=== PATIENT | female | born 1935 | race Caucasian/White ===

== ENCOUNTER → 2018-01-23 | Outpatient (CLI) | payer MEDICARE ==
[~2018-01-23] MED LIST: AMLO5 PO; ATEN50 PO; ATOR40TA PO; BISA10S PR; DOCU100 PO; FURO20 PO; HYDR-86 PO; ISOMON60ER PO; LEVFLO250 PO; LORA.5 PO; LOSA25 PO; OMEP20ER PO; RANO500T PO
== END ==
LOC: LAB SHORT 15:22 → LAB EV 15:22
DX: N39.0 Urinary tract infection, site not specified (principal)
CPT/HCPCS: 87077; 87086; 87186

== ENCOUNTER → 2018-05-01 | Outpatient (CLI) | payer MEDICARE ==
[2018-05-01 16:16] LABS: BASOPHILS ABSOLUTE AUTO 0.02 K/mm3 (0.00-0.23); BASOPHILS PERCENT AUTO 0 % (0-2); EOSINOPHILS ABSOLUTE AUTO 0.08 K/mm3 (0.00-0.68); EOSINOPHILS PERCENT AUTO 1 % (0-6); Hematocrit 33.9 % (33.0-51.0); Hemoglobin 10.9 g/dL (11.5-16.0); IMMATURE GRAN ABSOLUTE AUTO 0.03 K/mm3 (0.00-0.10); IMMATURE GRAN PERCENT AUTO 0 % (0-1); LYMPHOCYTES ABSOLUTE AUTO 0.96 K/mm3 (0.84-5.20); LYMPHOCYTES PERCENT AUTO 12 % (21-46); MONOCYTES ABSOLUTE AUTO 0.81 K/mm3 (0.16-1.47); MONOCYTES PERCENT AUTO 10 % (4-13); Mean Corpuscular HGB 27.8 pg (26.0-34.0); Mean Corpuscular HGB Conc 32.2 g/dL (31.5-36.5); Mean Corpuscular Volume 87 fL (80-100); Mean Platelet Volume 9.4 fL (9.1-12.4); NEUTROPHILS ABSOLUTE AUTO 6.45 K/mm3 (1.96-9.15); NEUTROPHILS PERCENT AUTO 77 % (41-73); Platelet Count 300 K/mm3 (150-400); RDW Coefficient Variation 17.2 % (11.7-14.2); RDW Standard Deviation 54.5 fL (35.1-46.3); Red Blood Cell Count 3.92 M/mm3 (3.80-5.20); White Blood Cell Count 8.35 K/mm3 (4.00-11.30)
== END ==
LOC: LAB SHORT 16:13 → LAB EV 16:13
PROVIDERS: Physician Assistant
DX: L03.119 Cellulitis of unspecified part of limb (principal)
CPT/HCPCS: 85025

== ENCOUNTER 2019-04-30 17:21 | Inpatient (IN) | payer MEDICARE ==
[~2019-04-30] VITALS: Ht 170.2 cm; Wt 64.9 kg
[2019-04-30 18:20] LABS: BASOPHILS ABSOLUTE AUTO 0.03 K/mm3 (0.00-0.23); BASOPHILS PERCENT AUTO 0 % (0-2); EOSINOPHILS ABSOLUTE AUTO 0.21 K/mm3 (0.00-0.68); EOSINOPHILS PERCENT AUTO 3 % (0-6); Hematocrit 24.3 % (33.0-51.0); Hemoglobin 7.2 g/dL (11.5-16.0); IMMATURE GRAN ABSOLUTE AUTO 0.02 K/mm3 (0.00-0.10); IMMATURE GRAN PERCENT AUTO 0 % (0-1); LYMPHOCYTES ABSOLUTE AUTO 0.79 K/mm3 (0.84-5.20); LYMPHOCYTES PERCENT AUTO 12 % (21-46); MONOCYTES ABSOLUTE AUTO 0.48 K/mm3 (0.16-1.47); MONOCYTES PERCENT AUTO 7 % (4-13); Mean Corpuscular HGB 23.5 pg (26.0-34.0); Mean Corpuscular HGB Conc 29.6 g/dL (31.5-36.5); Mean Corpuscular Volume 79 fL (80-100); Mean Platelet Volume 9.9 fL (9.1-12.4); NEUTROPHILS ABSOLUTE AUTO 5.24 K/mm3 (1.96-9.15); NEUTROPHILS PERCENT AUTO 77 % (41-73); Platelet Count 305 K/mm3 (150-400); RDW Coefficient Variation 18.3 % (11.7-14.2); RDW Standard Deviation 52.2 fL (35.1-46.3); Red Blood Cell Count 3.07 M/mm3 (3.80-5.20); White Blood Cell Count 6.77 K/mm3 (4.00-11.30)
[2019-04-30 18:37] LABS: Alanine Aminotransfer (ALT/SGP 13 U/L (12-78); Albumin/Globulin Ratio 0.9 (0.8-1.8); Alk Phos 125 U/L (50-136); Anion Gap 3 mmol/L (6-16); Aspartate Aminotrans (AST/SGOT 12 U/L (12-37); Bilirubin, Total 0.4 mg/dL (0.1-1.0); Blood Urea Nitrogen 27 mg/dL (8-24); Bun/Creatinine Ratio 33.6 (12.0-20.0); CO2, Blood 28 mmol/L (21-32); Calcium, Blood 8.7 mg/dL (8.5-10.1); Chloride, Blood 106 mmol/L (98-108); Globulin, Blood 3.3 g/dL (2.2-4.0); Glomerular Filtration Rate >60 (60-); Glucose, Blood 102 mg/dL (70-99); Potassium, Blood 4.3 mmol/L (3.5-5.5); Sodium, Blood 137 mmol/L (136-145); Total Protein, Blood 6.3 g/dL (6.4-8.2)
[2019-04-30] MEDS ORDERED: DIAZ5 PO (19:46)
[2019-04-30] MEDS ORDERED: CLOP75 PO (19:46)
[2019-04-30] MEDS ORDERED: OLME20 PO ×2 (19:46)
[2019-04-30 20:30] LABS: Source, Urine Clean Catch
[2019-04-30 20:34] LABS: Bilirubin, Urine Neg (Neg); Blood, Urine Neg (Neg); Glucose Qualitative, Urine Neg (Neg); Ketones, Urine Neg (Neg); Leukocyte Esterase, Urine 1+ (Neg); Nitrite, Urine Neg (Neg); Protein, Urine Neg (Neg); Specific Gravity, Urine 1.005 (1.003-1.022); Urobilinogen, Urine NORM (Normal)
[2019-04-30 20:41] LABS: Appearance, Urine Clear (Clear); Color, Urine Yellow (P-Yellow)
[2019-04-30 20:43] LABS: Bacteria Few /hpf; Red Blood Cells, Urine Not Seen /hpf (0-2); Squamous Epithelial Cells Rare /hpf (Few); White Blood Cells, Urine 0-2 /hpf (0-5)
--- NOTE | 2019-04-30 22:20 | NUR ---
PATIENT ARRIVED TO THE FLOOR VIA GURNEY. TRANSFERRED SELF TO BED. BLOOD TRANSFUSION INFUSING WITH NO PROBLEMS INTO 20G LEFT FA. PATIENT INDEPENDENT IN THE ROOM, AOX3. STATES OCCATIONAL ABDOMINAL PAIN THAT COMES AND GOES. CONSTIPATION FOR THE LAST FEW DAYS WITH ONLY SMALL BM DAILY, BUT HAS NOT HAD A GOOD BM FOR SEVERAL DAYS SHE STATES. LUNG SOUNDS ARE CLEAR THROUGHOUT. NO COUGH OR CONGESTION NOTED. ABDOMIN SLIGHT DISTENTION, TENDER TO TOUCH, HYPOACTIVE BT. SKIN WITH MULTIPLE BRUISES ON EXTREMITIES, PALE AND WARM TO THE TOUCH. HR REGULAR. TELE ORDERED. PATIENT SETTLED INTO THE ROOM, CALL LIGHT GIVEN. ADMISSION HISTORY AND ASSESSMENT COMPLETED. WILL CONTINUE TO MONITOR.
[2019-05-01 01:52] LABS: Hematocrit 29.6 % (33.0-51.0); Hemoglobin 9.1 g/dL (11.5-16.0); Mean Corpuscular HGB 24.4 pg (26.0-34.0); Mean Corpuscular HGB Conc 30.4 g/dL (31.5-36.5); Mean Corpuscular Volume 80 fL (80-100); Mean Platelet Volume 9.7 fL (9.1-12.4); Platelet Count 319 K/mm3 (150-400); RDW Coefficient Variation 17.5 % (11.7-14.2); RDW Standard Deviation 50.8 fL (35.1-46.3); Red Blood Cell Count 3.69 M/mm3 (3.80-5.20); White Blood Cell Count 9.53 K/mm3 (4.00-11.30)
[2019-05-01 02:10] LABS: Alanine Aminotransfer (ALT/SGP 15 U/L (12-78); Albumin, Blood 3.3 g/dL (3.4-5.0); Alk Phos 137 U/L (50-136); Anion Gap 7 mmol/L (6-16); Aspartate Aminotrans (AST/SGOT 8 U/L (12-37); Bilirubin, Total 1.7 mg/dL (0.1-1.0); Blood Urea Nitrogen 22 mg/dL (8-24); Bun/Creatinine Ratio 24.9 (12.0-20.0); CO2, Blood 30 mmol/L (21-32); Calcium, Blood 8.8 mg/dL (8.5-10.1); Chloride, Blood 106 mmol/L (98-108); Creatinine, Blood 0.88 mg/dL (0.40-1.00); Globulin, Blood 3.3 g/dL (2.2-4.0); Glomerular Filtration Rate >60 (60-); Glucose, Blood 108 mg/dL (70-99); Potassium, Blood 3.6 mmol/L (3.5-5.5); Sodium, Blood 143 mmol/L (136-145); Total Protein, Blood 6.6 g/dL (6.4-8.2)
--- NOTE | 2019-05-01 05:58 | NUR ---
SHIFT SUMMARY: 83 Y/O FEMALE ADMITTED FOR [facility], GOT TO THE FLOOR LAST NIGHT WITH BLOOD INFUSING FOR AN H/H OF 7.2/24.3. REPORTS SHE HAD BEEN HAVING BLACK TARRY STOOLS OFF AND ON FOR ABOUT 2 YEARS, BUT RECENTLY STARTED TO HAVE ABDOMINAL PAIN. WHICH SHE HAS NOT HAD A GOOD BM FOR SEVERAL DAYS, AND WILL NEED BOWEL CARE. VITALS SHOWN HTN 213/92 IN ER, 170'S/80'S ON THE FLOOR UNTIL LASIX WAS GIVEN AND BLOOD TRANSFUSION COMPLETED. NOW BP IS DOWN TO 149/59 LAST CHECKED. H/H THIS AM IS 9.1/29.6. GI CONSULT CALLED INTO DR. GARCIA FOR TODAY. OUTPUT AFTER LASIX WAS A TOTAL 3600. SOB HAS IMPROVED. SHE IS TIRED FROM BEING UP AND DOWN ALL NIGHT. IV PATENT AND SL. CALL LIGHT REMAINED IN REACH, PATIENT UP INDEPENDENT TO BSC ALL NIGHT. WILL REPORT TO DAY SHIFT RN.
[2019-05-01 13:19] LABS: Hematocrit 33.4 % (33.0-51.0); Hemoglobin 10.6 g/dL (11.5-16.0)
--- NOTE | 2019-05-01 16:18 | NUR ---
SHIFT SUMMARY PT'S DIET ADVANCED FROM CLEAR LIQUID TO CARDIAC DIET. ONE UNIT OF BLOOD GIVEN THIS SHIFT. PT TOLERATED THIS WELL. LASIX GIVEN ORDERED. I HAVE NOTICED THE PT RUNS HYPERTENSIVE (EXAMPLE: 199/76), AND SHE HAS SINCE ADMIT. I'VE ATTEMPTED TO CONTACT THE DOCTOR TO ASK ABOUT THIS, BUT I GET ONLY THE PAGING SYSTEM. IT IS NOT AN URGENT QUESTION THE PT HAS RAN HYPERTENSIVE SINCE ADMIT, BUT I AM CURIOUS ABOUT THIS. ECHO PERFORMED TODAY.
--- NOTE | 2019-05-01 17:27 | NUR ---
DR. GARCIA ROUNDED/I CALLED NIGHT HOSPITALIST DR. GARCIA DISCOVERED THAT THE PT HAD A PROLAPSED RECTUM DURING HIS EXAM. PT REFUSING ALL INVASIVE PROCEDURES AT THIS TIME. HOWEVER, I FEEL MUCH OF THIS MAY BE DUE TO FINANCIAL CONCERNS. I WILL HAVE BILLING DEPARTMENT COME AND ASWAGE HER AND HER 'S FEARS TOMORROW, IF POSSIBLE. I CALLED THE NIGHT HOSPITALIST REGARDING THE PT'S CONSISTENTLY HIGH BLOOD PRESSURES. THE NIGHT HOSPITALIST ASSURES ME THAT SHE WILL LOOK INTO THIS.
--- NOTE | 2019-05-01 19:20 | NUR ---
ASSUMED CARE OF THE PATIENT. PATIENT RESTING IN ROOM WORRIED ABOUT HER FINANCES DISCUSSED [facility] FINANCIAL ASSISTANCE PROGRAM. SHE SAID SHE WAS TOLD ABOUT IT AND WILL WORK WITH DAY SHIFT TOMORROW. SHE DOES NOT WANT TO THINK ABOUT IT MORE THEN SHE ALREADY IT. DENIES ANY NEEDS AT THIS TIME. CALL LIGHT IN REACH, WILL CONTINUE TO MONTIOR.
[2019-05-02 05:00] LABS: BASOPHILS ABSOLUTE AUTO 0.05 K/mm3 (0.00-0.23); BASOPHILS PERCENT AUTO 1 % (0-2); EOSINOPHILS ABSOLUTE AUTO 0.25 K/mm3 (0.00-0.68); EOSINOPHILS PERCENT AUTO 3 % (0-6); Hematocrit 34.4 % (33.0-51.0); Hemoglobin 10.7 g/dL (11.5-16.0); IMMATURE GRAN ABSOLUTE AUTO 0.02 K/mm3 (0.00-0.10); IMMATURE GRAN PERCENT AUTO 0 % (0-1); LYMPHOCYTES ABSOLUTE AUTO 0.69 K/mm3 (0.84-5.20); LYMPHOCYTES PERCENT AUTO 8 % (21-46); MONOCYTES PERCENT AUTO 8 % (4-13); Mean Corpuscular HGB 24.4 pg (26.0-34.0); Mean Corpuscular HGB Conc 31.1 g/dL (31.5-36.5); Mean Corpuscular Volume 79 fL (80-100); Mean Platelet Volume 10.3 fL (9.1-12.4); NEUTROPHILS ABSOLUTE AUTO 6.95 K/mm3 (1.96-9.15); NEUTROPHILS PERCENT AUTO 80 % (41-73); Platelet Count 334 K/mm3 (150-400); RDW Coefficient Variation 17.5 % (11.7-14.2); RDW Standard Deviation 49.2 fL (35.1-46.3); Red Blood Cell Count 4.38 M/mm3 (3.80-5.20); White Blood Cell Count 8.66 K/mm3 (4.00-11.30)
[2019-05-02 05:52] LABS: Albumin, Blood 3.1 g/dL (3.4-5.0); Anion Gap 6 mmol/L (6-16); Blood Urea Nitrogen 20 mg/dL (8-24); Bun/Creatinine Ratio 20.1 (12.0-20.0); CO2, Blood 30 mmol/L (21-32); Calcium, Blood 8.9 mg/dL (8.5-10.1); Chloride, Blood 106 mmol/L (98-108); Glomerular Filtration Rate 56 (60-); Glucose, Blood 98 mg/dL (70-99); Phosphorus, Blood 3.8 mg/dL (2.5-4.9); Potassium, Blood 3.7 mmol/L (3.5-5.5); Sodium, Blood 142 mmol/L (136-145)
--- NOTE | 2019-05-02 05:59 | NUR ---
SHIFT SUMMARY: 83 Y/O FEMALE, SLEPT OFF AND ON ALL NIGHT. VS SHOWED HTN IN THE 190-210'S HYDRALAZINE WAS GIVEN THIS AM. RECHECK SHOWED STILL IN THE WITH SOME DIZZINESS SHE REPORTED. WILL RECHECK AGAIN IN AN HOUR TO SEE IF THE BP HAS CAME DOWN FURTHER. SHE HAS LASIX ORDERED FOR THIS AM WELL. SHE DID RECEIVE THE SUPPOSITORY FOR HER HEMMORRIDS THAT DR. GARCIA ORDERED. SHE DID EXPRESSED INCREASE STRESS OVER HER FINANCES TONIGHT. ENCOURAGED HER TO NOT STRESS CERTIFIED PHARMACY TECH PLANS ON TALKING TO HER ABOUT FINANCIAL ASSISTANCE PROGRAM. THIS MIGHT BE WHAT IS CAUSING HER BP TO GO UP, H/H THIS AM WAS 10.6/33.4. WILL REPORT TO DAY SHIFT OF THE CHANGES THAT OCCURRED.
[2019-05-02] MEDS ORDERED: HYDACE25S PR (08:27)
[2019-05-02] MEDS ORDERED: POTCHL20ER PO (08:27)
[2019-05-02] MEDS ORDERED: FAMO20 PO (08:28)
[2019-05-02] MEDS ORDERED: SPIR25 PO (08:28)
--- NOTE | 2019-05-02 10:19 | NUR ---
DISCHARGE NOTE MEDICATIONS FAXED TO PREFERED PHARMACY. TELEMETRY DISCONTINUED. PT PROVIDED WITH HARDCOPY AND VERBAL INSTRUCTIONS FOR DISCHARGE RE: MEDICATIONS, DIAGNOSES, FOLLOW UP APPOINTMENTS. PT HAD NO FURTHER QUESTIONS. PT DRESSED IN PERSONAL CLOTHES. PERSONAL BELONGINGS GATHERED AND GIVEN TO THE PT. FAMILY NOTIFIED OF DISCHARGE. ESCORT TOOK THE PT OUT VIA WHEELCHAIR TO PRIVATE VEHICLE.
== END 2019-05-02 10:05 | disposition home or self-care (01) | DRG 291 ==
LOC: ER 17:21 → MEDS 17:22 → ENPENDDIS 05-02 08:07 → MEDS 05-02 10:05
PROVIDERS: Family Medicine; Physician Assistant; ADMIT Internal Medicine
PROC: 30233N1 Transfusion of Nonautologous Red Blood Cells into Peripheral Vein, Percutaneous Approach (ICD-10-PCS; principal; 2019-04-30)
DX: I11.0 Hypertensive heart disease with heart failure (principal); K29.71 Gastritis, unspecified, with bleeding; I50.31 Acute diastolic (congestive) heart failure; D62 Acute posthemorrhagic anemia; K64.8 Other hemorrhoids; I25.10 Atherosclerotic heart disease of native coronary artery without angina pectoris; I25.2 Old myocardial infarction; F41.9 Anxiety disorder, unspecified; Z79.02 Long term (current) use of antithrombotics/antiplatelets; Z86.73 Personal history of transient ischemic attack (TIA), and cerebral infarction without residual deficits
CPT/HCPCS: 36415; 36430; 71045; 74176; 80053; 80061; 80069; 81001; 82272; 82728; 83540; 83550; 83880; 84484; 85014; 85018; 85025; 85027; 86850; 86900; 86901; 86923; 87086; 93005; 93010; 93306; 96374; 96375; 96376; 99284-25; C9113; G0378; J0360; J1940; J7030; P9016

== ENCOUNTER → 2020-11-03 | Outpatient (CLI) | payer MEDICARE ==
[~2020-11-03] MED LIST changes: +ALEN70 PO; +ALLEGRA ALLERG180 MG PO; +ASPI81CH PO; +CLOP75 PO; +DIAZ5 PO; +FAMO20 PO; +FERROUS GLUCON324 M2 PO; +HYDACE25S PR; -ISOMON60ER PO; +ISOSORBIDE MONO60 MG PO; +OLME20 PO; +POTCHL20ER PO; +SPIR25 PO; +TORSE20 PO
== END | disposition home or self-care (01) ==
LOC: LAB EV 14:32 → LAB SHORT 14:32
DX: N39.0 Urinary tract infection, site not specified (principal)
CPT/HCPCS: 87077; 87086; 87186

== ENCOUNTER 2020-12-24 02:00 | Day surgery (SDC) | payer MEDICARE ==
[~2020-12-24 02:00] MED LIST changes: -ALEN70 PO; -ALLEGRA ALLERG180 MG PO; -ASPI81CH PO; -FERROUS GLUCON324 M2 PO; -TORSE20 PO
== END 2020-12-24 23:07 | disposition home or self-care (01) ==
LOC: WOUND 02:00
DX: L97.822 Non-pressure chronic ulcer of other part of left lower leg with fat layer exposed (principal); R60.0 Localized edema; I87.2 Venous insufficiency (chronic) (peripheral); I13.2 Hypertensive heart and chronic kidney disease with heart failure and with stage 5 chronic kidney disease, or end stage renal disease; I50.32 Chronic diastolic (congestive) heart failure; N18.6 End stage renal disease; I73.9 Peripheral vascular disease, unspecified; Z88.5 Allergy status to narcotic agent; Z88.1 Allergy status to other antibiotic agents; Z87.891 Personal history of nicotine dependence; Z95.5 Presence of coronary angioplasty implant and graft
CPT/HCPCS: A9270; G0463

== ENCOUNTER 2020-12-31 00:26 | Day surgery (SDC) | payer MEDICARE | END 2020-12-31 22:42 | disposition home or self-care (01) | LOC: WOUND 00:26 | DX: L97.822 Non-pressure chronic ulcer of other part of left lower leg with fat layer exposed (principal); I87.2 Venous insufficiency (chronic) (peripheral); I73.9 Peripheral vascular disease, unspecified; I25.10 Atherosclerotic heart disease of native coronary artery without angina pectoris; I50.30 Unspecified diastolic (congestive) heart failure; N18.30 Chronic kidney disease, stage 3 unspecified; M81.0 Age-related osteoporosis without current pathological fracture; Z95.5 Presence of coronary angioplasty implant and graft; Z88.1 Allergy status to other antibiotic agents; Z88.5 Allergy status to narcotic agent | CPT/HCPCS: A9270 ==

== ENCOUNTER 2021-01-04 00:20 | Day surgery (SDC) | payer MEDICARE | END 2021-01-04 22:50 | disposition home or self-care (01) | LOC: WOUND 00:20 | DX: L97.822 Non-pressure chronic ulcer of other part of left lower leg with fat layer exposed (principal); R60.0 Localized edema; I87.2 Venous insufficiency (chronic) (peripheral); I73.9 Peripheral vascular disease, unspecified | CPT/HCPCS: A9270 ==

== ENCOUNTER 2021-01-07 00:39 | Day surgery (SDC) | payer MEDICARE | END 2021-01-07 22:56 | disposition home or self-care (01) | LOC: WOUND 00:39 | DX: L97.822 Non-pressure chronic ulcer of other part of left lower leg with fat layer exposed (principal); R60.0 Localized edema; I87.2 Venous insufficiency (chronic) (peripheral); I73.9 Peripheral vascular disease, unspecified; I25.10 Atherosclerotic heart disease of native coronary artery without angina pectoris; I50.30 Unspecified diastolic (congestive) heart failure; N18.30 Chronic kidney disease, stage 3 unspecified | CPT/HCPCS: A9270 ==

== ENCOUNTER 2021-01-13 03:24 | Day surgery (SDC) | payer MEDICARE | END 2021-01-13 23:19 | disposition home or self-care (01) | LOC: WOUND 03:24 | DX: L97.822 Non-pressure chronic ulcer of other part of left lower leg with fat layer exposed (principal); R60.0 Localized edema; I87.2 Venous insufficiency (chronic) (peripheral); I73.9 Peripheral vascular disease, unspecified; I25.10 Atherosclerotic heart disease of native coronary artery without angina pectoris; Z95.5 Presence of coronary angioplasty implant and graft; N18.30 Chronic kidney disease, stage 3 unspecified; I50.30 Unspecified diastolic (congestive) heart failure; Z88.8 Allergy status to other drugs, medicaments and biological substances; Z88.1 Allergy status to other antibiotic agents | CPT/HCPCS: A9270 ==

== ENCOUNTER 2021-01-20 04:38 | Day surgery (SDC) | payer MEDICARE | END 2021-01-20 22:55 | disposition home or self-care (01) | LOC: WOUND 04:38 | DX: L97.822 Non-pressure chronic ulcer of other part of left lower leg with fat layer exposed (principal); I87.2 Venous insufficiency (chronic) (peripheral); I73.9 Peripheral vascular disease, unspecified; I25.10 Atherosclerotic heart disease of native coronary artery without angina pectoris; Z95.5 Presence of coronary angioplasty implant and graft; I50.9 Heart failure, unspecified; N18.30 Chronic kidney disease, stage 3 unspecified; M81.0 Age-related osteoporosis without current pathological fracture | CPT/HCPCS: A9270 ==

== ENCOUNTER 2021-01-27 02:24 | Day surgery (SDC) | payer MEDICARE | END 2021-01-27 23:49 | disposition home or self-care (01) | LOC: WOUND 02:24 | DX: L97.822 Non-pressure chronic ulcer of other part of left lower leg with fat layer exposed (principal); R60.0 Localized edema; I87.2 Venous insufficiency (chronic) (peripheral); I73.9 Peripheral vascular disease, unspecified; I25.10 Atherosclerotic heart disease of native coronary artery without angina pectoris; I50.32 Chronic diastolic (congestive) heart failure; N18.30 Chronic kidney disease, stage 3 unspecified | CPT/HCPCS: A9270 ==

== ENCOUNTER 2021-02-04 04:11 | Day surgery (SDC) | payer MEDICARE | END 2021-02-04 23:14 | disposition home or self-care (01) | LOC: WOUND 04:11 | DX: L97.822 Non-pressure chronic ulcer of other part of left lower leg with fat layer exposed (principal); I87.2 Venous insufficiency (chronic) (peripheral); I73.9 Peripheral vascular disease, unspecified; R60.0 Localized edema; I25.10 Atherosclerotic heart disease of native coronary artery without angina pectoris; I50.30 Unspecified diastolic (congestive) heart failure; N18.30 Chronic kidney disease, stage 3 unspecified; Z95.5 Presence of coronary angioplasty implant and graft | CPT/HCPCS: A9270 ==

== ENCOUNTER 2021-02-10 04:47 | Day surgery (SDC) | payer MEDICARE | END 2021-02-10 23:01 | disposition home or self-care (01) | LOC: WOUND 04:47 | DX: L97.822 Non-pressure chronic ulcer of other part of left lower leg with fat layer exposed (principal); R60.0 Localized edema; I87.2 Venous insufficiency (chronic) (peripheral); I73.9 Peripheral vascular disease, unspecified | CPT/HCPCS: A9270 ==

== ENCOUNTER 2021-02-16 20:19 | Inpatient (IN) | payer MEDICARE ==
[~2021-02-16] VITALS: Ht 167.6 cm; Wt 62.8 kg
[2021-02-16 21:04] LABS: BASOPHILS ABSOLUTE AUTO 0.06 K/mm3 (0.00-0.23); BASOPHILS PERCENT AUTO 1 % (0-2); EOSINOPHILS ABSOLUTE AUTO 0.36 K/mm3 (0.00-0.68); EOSINOPHILS PERCENT AUTO 4 % (0-6); Hematocrit 36.3 % (33.0-51.0); Hemoglobin 11.2 g/dL (11.5-16.0); IMMATURE GRAN ABSOLUTE AUTO 0.03 K/mm3 (0.00-0.10); IMMATURE GRAN PERCENT AUTO 0 % (0-1); LYMPHOCYTES ABSOLUTE AUTO 1.11 K/mm3 (0.84-5.20); LYMPHOCYTES PERCENT AUTO 13 % (21-46); MONOCYTES ABSOLUTE AUTO 0.71 K/mm3 (0.16-1.47); MONOCYTES PERCENT AUTO 8 % (4-13); Mean Corpuscular HGB 26.7 pg (26.0-34.0); Mean Corpuscular HGB Conc 30.9 g/dL (31.5-36.5); Mean Corpuscular Volume 87 fL (80-100); Mean Platelet Volume 10.7 fL (9.1-12.4); NEUTROPHILS PERCENT AUTO 73 % (41-73); Platelet Count 254 K/mm3 (150-400); RDW Coefficient Variation 17.2 % (11.7-14.2); RDW Standard Deviation 54.3 fL (35.1-46.3); Red Blood Cell Count 4.19 M/mm3 (3.80-5.20); White Blood Cell Count 8.47 K/mm3 (4.00-11.30)
[2021-02-16 21:21] LABS: Albumin/Globulin Ratio 0.8 (0.8-1.8); Bilirubin, Total 0.3 mg/dL (0.1-1.0); Bun/Creatinine Ratio 24.4 (12.0-20.0); Calcium, Blood 8.9 mg/dL (8.5-10.1); Creatinine, Blood 0.98 mg/dL (0.40-1.00); Globulin, Blood 3.8 g/dL (2.2-4.0); Potassium, Blood 4.3 mmol/L (3.5-5.5); Total Protein, Blood 6.8 g/dL (6.4-8.2)
[2021-02-16 21:49] LABS: Troponin I 0.023 ng/mL (0.000-0.040)
[2021-02-16 23:29] LABS: CHOL/HDL RATIO 1.7; Cholesterol 108 mg/dL (50-200); HDL Cholesterol 64 mg/dL (>39); International Normalized Ratio 1.01; LDL/HDL RATIO 0.5; Low Density Lipoprotein Chol 33 mg/dL (0-110); Prothrombin Time Results 10.9 Sec (9.7-11.5); Triglycerides 54 mg/dL (30-160); Very Low Density Lipoprot Chol 10 mg/dL (6-32)
--- NOTE | 2021-02-17 06:44 | NUR ---
SUMMARY PT HAS BEEN A&O X3, SHE WAS ANABLE TO RECALL HER MEDICAL HX, MEDICATIONS OR ALLERGIES. PT IS COOPERATIVE BUT VERY ANXIOUS, HYPERTENSIVE & TALKATIVE. PT STATES SHE STILL HAS A SMALL AMOUNT OF TINGLENG TO HER RIGHT ARM BUT IT HAS IMPROVED SINCE ADMISSION. SHE IS ON ROOM AIR & DENIES CP/PRESSURE. PT IS A STAND BY ASSIST TO THE BATHROOM, TOLERATING PO INTAKE. CALL LIGHT IN REACH, BED ALARM IS ON FOR SAFETY.
--- NOTE | 2021-02-17 13:06 | NUR ---
PT FELT THAT THE WEAKNESS IN HER ARM HAS INCRESED, HER BP IS STILL ELEVATED, PERMISSIVE HTN TREAT PER EMAR WHEN SBP IS GREATER THAN 220. 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 AWAITING MRI RESULTS, IT WAS COMPLETED TODAY. PT IS ANXIOUS ABOUT HER DIAGNOSIS AND VERY WORRIED. PT IS HAVING ACTIVE HEMMORRIOD BLEEDING WHICH IS MAKING THE USE OF THINNERS DIFFICULT.
--- NOTE | 2021-02-17 17:33 | NUR ---
Echocardiogram performed.
--- NOTE | 2021-02-17 18:37 | NUR ---
SHIFT SUMMARY PT HAS BEEN COOPERATIVE WITH CARE TODAY. PT HAS BEEN HTN, PERMISSIVE UP TO SBP 180, PRN MEDICATIONS ON EMAR FOR HIGHER SBP. PT HAD AN MRI COMPLETED TODAY WHICH CONFIRMED STROKE, RIGHT SIDED WEAKNESS MOSTLY IN THE RIGHT HAND. 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 PT'S SKIN IS VERY FRAGILE. WOUND CLINIC ORDERS WERE OBTAINED AND PUT IN THE COMPUTER AND CHART, PICTURES WERE TAKEN AND THE WOUND WAS REDRESSED. THE DRESSING IS TO BE COMPLETED ONCE A WEEK ON MONDAY. PT HAS SOME INTERMITTEN ANXIOUSNESS BUT IS ABLE TO TALK HER WAY THROUGH IT. PT'S NEURO ASSESSMENT IS OTHERWISE STABLE. PT IS RESTING IN BED AT THIS TIME
--- NOTE | 2021-02-18 05:35 | NUR ---
PATIENT IS ALERT ORIENTATED, ABLE TO MAKE NEEDS KNOWN, USES CALL LIGHT APPROPRIATELY, STAND BY ASSIST TO BATHROOM. PATIENT HAD SBP> 180 X 2 RECEIVED LABETOLOL PRN WITH GOOD RESULTS, DURING HIGH BLOOD PRESSURE PATIENT C/O THROBING BILATERAL EARS, GI UPSET, BILATERAL TEMPORAL PAIN, NO VISION CHANGES AND/OR SENSITIVITY TO LIGHT, NO NUMBNESS AND TINGLING NOTED. PATIENT NEURO EXAMS THROUGHOUT SHIFT POSITIVE FOR RIGHT SIDED WEAKNESS, BILATERAL EQUAL PUSHES AND PULLS, NO DRIFTS X 4, WILL CONTINUE TO MONITOR.
--- NOTE | 2021-02-18 17:32 | NUR ---
Update 02/18/2021: Pt. not yet appropriate for discharge per Dr. Waite.
--- NOTE | 2021-02-18 19:42 | NUR ---
SHIFT SUMMARY PT IS STILL INTERMITTENLY CONFUSED/FORGETFUL. PT IS VERY PLEASANT, 1 PERSON TO THE BATHROOM WITH THE WALKER. THIS AFTERNOON PT HAD A JUMP IN BP, THIS WAS TREATED WITH HYDRALIZINE WHICH LOWERED HER PRESSURE VERY QUICKLY. THE FULL DOSE OF APRESOLINE WAS ADMINISTERED SINCE PREVIOUSLY THE LOWER DOSE WAS INEFFECTIVE. THE APRESOLINE DROPPED HER PRESSURE QUICKLY AND SHE FELT FLUSHED, WARM AND IT INCREASED HER ANXIETY. AFTER SOME MUSIC AND MEDITATION AND REASSURANCE PT WAS LESS ANXIOUS, FELT MUCH BETTER AND HER BP STABLIZED. PT'S DRESSING ON THE LLE IS STILL IN PLACE PER WOUND CENTER ORDERS. PALLIATIVE CARE HAS BEEN ORDERED FOR PT WITH THE POSSIBILITY OF WORKING ON AN ADVANCE DIRECTIVE OR POLST FOR THE PATIENT, PER HER AND HER SPOUSE'S REQUEST.
--- NOTE | 2021-02-18 21:39 | NUR ---
TRANSFER OF CARE 1899 - ASSUMED CARE OF PT. NO NEURO DEFICITS NOTED OTHER THAN SOME INTERMITENT FORGETFULLNESS. SBP <180. IN SR. ON RA. DRESSING NOTED TO LEFT LOWER LEG. PER REPORT, THIS DRESSING TO REMAIN IN PLACE X1 WEEK. PT OTHERWISE HAS BEEN UP TO BATHRROM WITH FWW AND 1 SBA. PT MAKING NEEDS KNOWN AND IS EXCITED ABOUT THE PROSPECT OF DISCHARGE SOON. PT DOES STATE FEELING SLIGHTLY APPREHENSIVE ABOUT POTENTIAL MOVEMENT OU OF ROOM BUT UNDERSTANDS THIS MEANS THAT SHE IS IMPROVING. 2119 - PT TO MEDICAL FLOOR 327. ALL BELONGINGS WITH PT. PT BROUGHT TO FLOOR VIA W/O INCIDENT. HARDEEP NEWBERRY RN ASSUMING CARE AT THIS TIME.
--- NOTE | 2021-02-19 06:43 | NUR ---
SUMMARY PT ARRIVED TO FLOOR IN NO DISTRESS. PT SLEPT MOST OF SHIFT. PT ABLE TO USE RESTROOM AND HAD NO ISSUES WALKING. PT CURRENTLY SLEEPING IN NO DISTRESS. CALL LIGHT IN REACH.
[2021-02-19] MEDS ORDERED: ALLEGRA ALLERG180 MG PO (12:39)
[2021-02-19] MEDS ORDERED: DIAZ5 PO (12:39)
[2021-02-19] MEDS ORDERED: OLME20 PO (12:40)
[2021-02-19] MEDS ORDERED: FERROUS GLUCON324 M2 PO (12:40)
[2021-02-19] MEDS ORDERED: TORSE20 PO (12:41)
[2021-02-19] MEDS ORDERED: RANO500T PO (12:43)
[2021-02-19] MEDS ORDERED: ALEN70 PO (12:45)
--- NOTE | 2021-02-19 12:56 | NUR ---
SUMMARY: 02/19/21- per chart review, pt is able to discharge home today. Met with pt and she reports that prior to coming into the hospital. She lives at home with her and they have a son and friends that check on them. Pt's home is a single story home with working utilities. There are about 5 steps to get into the home but she has no concerns using the stairs. Pt no longer drives, her takes her to her appts and picks up her prescriptions. Pt does have a POA and her is her next of kin. She would like to have a shower chair to make it easier to bath herself. She is able to manager of training her own medications and she uses [facility]. Pt stated that she would like to hire someone who is licensed and bonded to come clean her home. Provided her with a few resources. Pt also stated that she would like to have meals on wheels. With the pt's permission, filled out online form on her behalf. Pt does have upcoming appt with Dr. Moffett on 02/26/21.mac
[2021-02-19] MEDS ORDERED: ASPI81CH PO (13:33)
--- NOTE | 2021-02-19 16:07 | NUR ---
PATIENT DISCHARGED HOME WITH PRESENT, AND ALL PERSONAL BELONGINGS IN THEIR POSSESSION. AND PATIENT VERBALIZED UNDERSTANDING. TEACHBACK METHOD UTILIZED. ALL QUESTIONS ANSWERED.
== END 2021-02-19 15:56 | disposition home health service (06) | DRG 65 ==
LOC: ER 20:19 → PCU 20:20 → MEDS 02-18 21:24 → ENPENDDIS 02-19 14:34 → MEDS 02-19 15:56
PROVIDERS: Physician Assistant; ADMIT Family Medicine
DX: I63.81 Other cerebral infarction due to occlusion or stenosis of small artery (principal); I16.1 Hypertensive emergency; G81.91 Hemiplegia, unspecified affecting right dominant side; R20.0 Anesthesia of skin; R47.1 Dysarthria and anarthria; R29.701 NIHSS score 1; I11.0 Hypertensive heart disease with heart failure; R47.02 Dysphasia; F41.9 Anxiety disorder, unspecified; I25.10 Atherosclerotic heart disease of native coronary artery without angina pectoris; D63.8 Anemia in other chronic diseases classified elsewhere; I50.9 Heart failure, unspecified; I27.20 Pulmonary hypertension, unspecified; I08.2 Rheumatic disorders of both aortic and tricuspid valves; K64.9 Unspecified hemorrhoids; Z88.5 Allergy status to narcotic agent; Z90.710 Acquired absence of both cervix and uterus; Z90.49 Acquired absence of other specified parts of digestive tract; Z98.890 Other specified postprocedural states; Z79.82 Long term (current) use of aspirin; Z79.899 Other long term (current) drug therapy; Z95.5 Presence of coronary angioplasty implant and graft
CPT/HCPCS: 70450; 70551; 80053; 80061; 82947; 84484; 85025; 85610; 85730; 92523; 93005; 93010; 93308; 93880; 96372; 96374; 96376; 97110; 97116; 97162; 97166; 97530; 97535; 99285-25; A9270; G0378; J0360; J1650

== ENCOUNTER 2021-02-24 01:22 | Day surgery (SDC) | payer MEDICARE ==
[~2021-02-24 01:22] MED LIST changes: +ALEN70 PO; +ALLEGRA ALLERG180 MG PO; +ASPI81CH PO; +FERROUS GLUCON324 M2 PO; +TORSE20 PO
== END 2021-02-24 23:43 | disposition home or self-care (01) ==
LOC: WOUND 01:22
DX: L97.822 Non-pressure chronic ulcer of other part of left lower leg with fat layer exposed (principal); R60.0 Localized edema; I87.2 Venous insufficiency (chronic) (peripheral); I73.9 Peripheral vascular disease, unspecified; I25.10 Atherosclerotic heart disease of native coronary artery without angina pectoris; Z95.5 Presence of coronary angioplasty implant and graft; I13.0 Hypertensive heart and chronic kidney disease with heart failure and stage 1 through stage 4 chronic kidney disease, or unspecified chronic kidney disease; I50.30 Unspecified diastolic (congestive) heart failure; N18.30 Chronic kidney disease, stage 3 unspecified; Z86.73 Personal history of transient ischemic attack (TIA), and cerebral infarction without residual deficits; Z88.1 Allergy status to other antibiotic agents; Z88.5 Allergy status to narcotic agent
CPT/HCPCS: A9270

== ENCOUNTER 2021-02-28 17:57 | Emergency (ER) | payer MEDICARE ==
[~2021-02-28] VITALS: Ht 165.1 cm; Wt 63.5 kg
[2021-02-28 18:25] LABS: BASOPHILS ABSOLUTE AUTO 0.03 K/mm3 (0.00-0.23); BASOPHILS PERCENT AUTO 1 % (0-2); EOSINOPHILS ABSOLUTE AUTO 0.28 K/mm3 (0.00-0.68); EOSINOPHILS PERCENT AUTO 4 % (0-6); Hematocrit 27.9 % (33.0-51.0); Hemoglobin 8.7 g/dL (11.5-16.0); IMMATURE GRAN ABSOLUTE AUTO 0.03 K/mm3 (0.00-0.10); IMMATURE GRAN PERCENT AUTO 1 % (0-1); LYMPHOCYTES ABSOLUTE AUTO 0.95 K/mm3 (0.84-5.20); LYMPHOCYTES PERCENT AUTO 14 % (21-46); MONOCYTES ABSOLUTE AUTO 0.44 K/mm3 (0.16-1.47); MONOCYTES PERCENT AUTO 7 % (4-13); Mean Corpuscular HGB 26.9 pg (26.0-34.0); Mean Corpuscular HGB Conc 31.2 g/dL (31.5-36.5); Mean Corpuscular Volume 86 fL (80-100); Mean Platelet Volume 10.4 fL (9.1-12.4); NEUTROPHILS ABSOLUTE AUTO 4.93 K/mm3 (1.96-9.15); NEUTROPHILS PERCENT AUTO 74 % (41-73); Platelet Count 267 K/mm3 (150-400); RDW Coefficient Variation 17.1 % (11.7-14.2); RDW Standard Deviation 54.1 fL (35.1-46.3); Red Blood Cell Count 3.24 M/mm3 (3.80-5.20); White Blood Cell Count 6.66 K/mm3 (4.00-11.30)
[2021-02-28 18:42] LABS: Albumin, Blood 2.8 g/dL (3.4-5.0); Albumin/Globulin Ratio 0.8 (0.8-1.8); Bilirubin, Total 0.3 mg/dL (0.1-1.0); Calcium, Blood 8.7 mg/dL (8.5-10.1); Creatinine, Blood 0.96 mg/dL (0.40-1.00); Globulin, Blood 3.6 g/dL (2.2-4.0); Potassium, Blood 4.3 mmol/L (3.5-5.5); Total Protein, Blood 6.4 g/dL (6.4-8.2)
[2021-02-28 20:04] LABS: International Normalized Ratio 1.06; Prothrombin Time Results 11.4 Sec (9.7-11.5)
== END 2021-02-28 21:12 | disposition home or self-care (01) ==
LOC: ER 17:57
PROVIDERS: Physician Assistant
DX: H35.30 Unspecified macular degeneration (principal); Z88.8 Allergy status to other drugs, medicaments and biological substances; Z79.899 Other long term (current) drug therapy
CPT/HCPCS: 70450; 80053; 85025; 85610; 93005; 93010; 99284-25

== ENCOUNTER 2021-03-04 00:46 | Day surgery (SDC) | payer MEDICARE | END 2021-03-04 22:42 | disposition home or self-care (01) | LOC: WOUND 00:46 | DX: L97.822 Non-pressure chronic ulcer of other part of left lower leg with fat layer exposed (principal); R60.0 Localized edema; I87.2 Venous insufficiency (chronic) (peripheral); I73.9 Peripheral vascular disease, unspecified; I13.0 Hypertensive heart and chronic kidney disease with heart failure and stage 1 through stage 4 chronic kidney disease, or unspecified chronic kidney disease; I50.30 Unspecified diastolic (congestive) heart failure; N18.30 Chronic kidney disease, stage 3 unspecified; I25.10 Atherosclerotic heart disease of native coronary artery without angina pectoris; Z95.5 Presence of coronary angioplasty implant and graft; Z86.73 Personal history of transient ischemic attack (TIA), and cerebral infarction without residual deficits | CPT/HCPCS: A9270 ==

== ENCOUNTER 2021-03-11 00:51 | Day surgery (SDC) | payer MEDICARE | END 2021-03-11 22:43 | disposition home or self-care (01) | LOC: WOUND 00:51 | DX: L97.822 Non-pressure chronic ulcer of other part of left lower leg with fat layer exposed (principal); R60.0 Localized edema; I87.2 Venous insufficiency (chronic) (peripheral); I73.9 Peripheral vascular disease, unspecified; I25.10 Atherosclerotic heart disease of native coronary artery without angina pectoris; I13.0 Hypertensive heart and chronic kidney disease with heart failure and stage 1 through stage 4 chronic kidney disease, or unspecified chronic kidney disease; I50.30 Unspecified diastolic (congestive) heart failure; N18.30 Chronic kidney disease, stage 3 unspecified; Z86.73 Personal history of transient ischemic attack (TIA), and cerebral infarction without residual deficits; Z95.5 Presence of coronary angioplasty implant and graft; Z88.1 Allergy status to other antibiotic agents; Z88.8 Allergy status to other drugs, medicaments and biological substances | CPT/HCPCS: A9270 ==

== ENCOUNTER 2021-03-18 02:18 | Day surgery (SDC) | payer MEDICARE | END 2021-03-18 22:40 | disposition home or self-care (01) | LOC: WOUND 02:18 | DX: L97.822 Non-pressure chronic ulcer of other part of left lower leg with fat layer exposed (principal); R60.0 Localized edema; I87.2 Venous insufficiency (chronic) (peripheral); I73.9 Peripheral vascular disease, unspecified; I25.10 Atherosclerotic heart disease of native coronary artery without angina pectoris; I13.0 Hypertensive heart and chronic kidney disease with heart failure and stage 1 through stage 4 chronic kidney disease, or unspecified chronic kidney disease; I50.30 Unspecified diastolic (congestive) heart failure; N18.30 Chronic kidney disease, stage 3 unspecified; Z88.8 Allergy status to other drugs, medicaments and biological substances; Z88.1 Allergy status to other antibiotic agents | CPT/HCPCS: A9270 ==

== ENCOUNTER 2021-03-25 02:09 | Day surgery (SDC) | payer MEDICARE | END 2021-03-25 23:00 | disposition home or self-care (01) | LOC: WOUND 02:09 | DX: L97.822 Non-pressure chronic ulcer of other part of left lower leg with fat layer exposed (principal); R60.0 Localized edema; I87.2 Venous insufficiency (chronic) (peripheral); I73.9 Peripheral vascular disease, unspecified | CPT/HCPCS: A9270 ==

== ENCOUNTER 2021-04-01 08:00 | Day surgery (SDC) | payer MEDICARE | END 2021-04-01 23:59 | disposition home or self-care (01) | LOC: WOUND 08:00 | DX: L97.829 Non-pressure chronic ulcer of other part of left lower leg with unspecified severity (principal); I13.0 Hypertensive heart and chronic kidney disease with heart failure and stage 1 through stage 4 chronic kidney disease, or unspecified chronic kidney disease; N18.30 Chronic kidney disease, stage 3 unspecified; I50.30 Unspecified diastolic (congestive) heart failure; I25.10 Atherosclerotic heart disease of native coronary artery without angina pectoris; R60.0 Localized edema; I87.2 Venous insufficiency (chronic) (peripheral); I73.9 Peripheral vascular disease, unspecified; Z95.5 Presence of coronary angioplasty implant and graft; Z86.73 Personal history of transient ischemic attack (TIA), and cerebral infarction without residual deficits; Z88.1 Allergy status to other antibiotic agents; Z88.5 Allergy status to narcotic agent; Z88.8 Allergy status to other drugs, medicaments and biological substances | CPT/HCPCS: G0463 ==

== ENCOUNTER 2021-04-08 04:13 | Day surgery (SDC) | payer MEDICARE | END 2021-04-08 23:27 | disposition home or self-care (01) | LOC: WOUND 04:13 | DX: L97.822 Non-pressure chronic ulcer of other part of left lower leg with fat layer exposed (principal); R60.0 Localized edema; R87.2 Abnormal level of other drugs, medicaments and biological substances in specimens from female genital organs; I73.9 Peripheral vascular disease, unspecified | CPT/HCPCS: A9270; G0463 ==

== ENCOUNTER 2021-04-15 02:02 | Day surgery (SDC) | payer MEDICARE | END 2021-04-15 23:29 | disposition home or self-care (01) | LOC: WOUND 02:02 | DX: L97.822 Non-pressure chronic ulcer of other part of left lower leg with fat layer exposed (principal); I87.2 Venous insufficiency (chronic) (peripheral); I73.9 Peripheral vascular disease, unspecified; R60.0 Localized edema; I25.10 Atherosclerotic heart disease of native coronary artery without angina pectoris; I13.0 Hypertensive heart and chronic kidney disease with heart failure and stage 1 through stage 4 chronic kidney disease, or unspecified chronic kidney disease; N18.30 Chronic kidney disease, stage 3 unspecified; I50.30 Unspecified diastolic (congestive) heart failure; Z95.5 Presence of coronary angioplasty implant and graft; M81.0 Age-related osteoporosis without current pathological fracture; Z86.73 Personal history of transient ischemic attack (TIA), and cerebral infarction without residual deficits | CPT/HCPCS: A9270; G0463 ==

== ENCOUNTER 2021-04-19 22:23 | Emergency (ER) | payer MEDICARE ==
[~2021-04-19] VITALS: Ht 167.6 cm; Wt 63.0 kg
[2021-04-19 22:55] LABS: BASOPHILS ABSOLUTE AUTO 0.03 K/mm3 (0.00-0.23); BASOPHILS PERCENT AUTO 0 % (0-2); EOSINOPHILS ABSOLUTE AUTO 0.08 K/mm3 (0.00-0.68); EOSINOPHILS PERCENT AUTO 1 % (0-6); Hematocrit 26.5 % (33.0-51.0); Hemoglobin 8.3 g/dL (11.5-16.0); IMMATURE GRAN ABSOLUTE AUTO 0.04 K/mm3 (0.00-0.10); IMMATURE GRAN PERCENT AUTO 0 % (0-1); LYMPHOCYTES ABSOLUTE AUTO 0.66 K/mm3 (0.84-5.20); LYMPHOCYTES PERCENT AUTO 7 % (21-46); MONOCYTES ABSOLUTE AUTO 0.57 K/mm3 (0.16-1.47); MONOCYTES PERCENT AUTO 6 % (4-13); Mean Corpuscular HGB 26.4 pg (26.0-34.0); Mean Corpuscular HGB Conc 31.3 g/dL (31.5-36.5); Mean Corpuscular Volume 84 fL (80-100); Mean Platelet Volume 10.3 fL (9.1-12.4); NEUTROPHILS ABSOLUTE AUTO 7.55 K/mm3 (1.96-9.15); NEUTROPHILS PERCENT AUTO 85 % (41-73); Platelet Count 398 K/mm3 (150-400); RDW Standard Deviation 51.7 fL (35.1-46.3); Red Blood Cell Count 3.14 M/mm3 (3.80-5.20); White Blood Cell Count 8.93 K/mm3 (4.00-11.30)
[2021-04-19 23:14] LABS: Troponin I <0.015 ng/mL (0.000-0.040)
[2021-04-19 23:18] LABS: Alanine Aminotransfer (ALT/SGP 25 U/L (12-78); Albumin, Blood 2.8 g/dL (3.4-5.0); Albumin/Globulin Ratio 0.7 (0.8-1.8); Alk Phos 156 U/L (50-136); Anion Gap 4 mmol/L (6-16); Aspartate Aminotrans (AST/SGOT 55 U/L (12-37); Bilirubin, Total 0.6 mg/dL (0.1-1.0); Blood Urea Nitrogen 21 mg/dL (8-24); Bun/Creatinine Ratio 27.1 (12.0-20.0); CO2, Blood 26 mmol/L (21-32); Chloride, Blood 105 mmol/L (98-108); Creatinine, Blood 0.78 mg/dL (0.40-1.00); Globulin, Blood 3.9 g/dL (2.2-4.0); Glomerular Filtration Rate >60 (60-); Glucose, Blood 141 mg/dL (70-99); Potassium, Blood 5.1 mmol/L (3.5-5.5); Sodium, Blood 135 mmol/L (136-145); Total Protein, Blood 6.7 g/dL (6.4-8.2)
[2021-04-20 00:28] LABS: SARS-Cov-2 (COVID-19) PCR, MMC NEGATIVE (NEGATIVE)
== END 2021-04-20 02:58 | disposition home or self-care (01) ==
LOC: ER 22:23
PROVIDERS: Emergency Medicine
DX: R07.89 Other chest pain (principal); D64.9 Anemia, unspecified; Z20.822 Contact with and (suspected) exposure to COVID-19; Z88.8 Allergy status to other drugs, medicaments and biological substances; Z79.899 Other long term (current) drug therapy; Z79.82 Long term (current) use of aspirin; Z87.891 Personal history of nicotine dependence
CPT/HCPCS: 71045; 80053; 84484; 85025; 93005; 93010; 99285-25; U0004

== ENCOUNTER 2021-04-29 01:49 | Day surgery (SDC) | payer MEDICARE | END 2021-04-29 23:02 | disposition home or self-care (01) | LOC: WOUND 01:49 | DX: S81.802A Unspecified open wound, left lower leg, initial encounter (principal); X58.XXXA Exposure to other specified factors, initial encounter | CPT/HCPCS: A9270; G0463 ==

== ENCOUNTER 2021-05-13 01:22 | Day surgery (SDC) | payer MEDICARE | END 2021-05-13 23:02 | disposition home or self-care (01) | LOC: WOUND 01:22 | DX: L97.822 Non-pressure chronic ulcer of other part of left lower leg with fat layer exposed (principal); R60.0 Localized edema; I87.2 Venous insufficiency (chronic) (peripheral); I73.9 Peripheral vascular disease, unspecified; I25.10 Atherosclerotic heart disease of native coronary artery without angina pectoris; I13.0 Hypertensive heart and chronic kidney disease with heart failure and stage 1 through stage 4 chronic kidney disease, or unspecified chronic kidney disease; I50.30 Unspecified diastolic (congestive) heart failure; N18.30 Chronic kidney disease, stage 3 unspecified | CPT/HCPCS: A9270; G0463 ==

== ENCOUNTER → 2021-09-06 | Outpatient (CLI) | payer MEDICARE | END | disposition home or self-care (01) | LOC: LAB SHORT 19:07 | PROVIDERS: Family Medicine | DX: Z51.81 Encounter for therapeutic drug level monitoring (principal); Z79.899 Other long term (current) drug therapy | CPT/HCPCS: G0480 ==

== ENCOUNTER → 2021-10-11 | Outpatient (CLI) | payer MEDICARE ==
[2021-10-11 16:12] LABS: BASOPHILS ABSOLUTE AUTO 0.03 K/mm3 (0.00-0.23); BASOPHILS PERCENT AUTO 0 % (0-2); EOSINOPHILS ABSOLUTE AUTO 0.11 K/mm3 (0.00-0.68); EOSINOPHILS PERCENT AUTO 2 % (0-6); Hematocrit 26.3 % (33.0-51.0); Hemoglobin 7.9 g/dL (11.5-16.0); IMMATURE GRAN ABSOLUTE AUTO 0.03 K/mm3 (0.00-0.10); IMMATURE GRAN PERCENT AUTO 0 % (0-1); LYMPHOCYTES ABSOLUTE AUTO 0.67 K/mm3 (0.84-5.20); LYMPHOCYTES PERCENT AUTO 10 % (21-46); MONOCYTES PERCENT AUTO 7 % (4-13); Mean Corpuscular HGB 26.2 pg (26.0-34.0); Mean Corpuscular Volume 87 fL (80-100); Mean Platelet Volume 9.9 fL (9.1-12.4); NEUTROPHILS ABSOLUTE AUTO 5.74 K/mm3 (1.96-9.15); NEUTROPHILS PERCENT AUTO 81 % (41-73); Platelet Count 370 K/mm3 (150-400); RDW Coefficient Variation 17.4 % (11.7-14.2); RDW Standard Deviation 55.5 fL (35.1-46.3); Red Blood Cell Count 3.02 M/mm3 (3.80-5.20); White Blood Cell Count 7.08 K/mm3 (4.00-11.30)
[2021-10-11 16:44] LABS: Percent Saturation 8.6 % (15.0-50.0)
== END | disposition home or self-care (01) ==
LOC: LAB SHORT 15:30 → LAB 15:30
PROVIDERS: Registered Nurse Oncology
DX: D50.9 Iron deficiency anemia, unspecified (principal); R53.83 Other fatigue
CPT/HCPCS: 82728; 83540; 83550; 85025

== ENCOUNTER 2021-10-26 16:15 | Inpatient (IN) | payer MEDICARE ==
[~2021-10-26] VITALS: Ht 167.6 cm; Wt 67.7 kg
[~2021-10-26 16:15] MED LIST changes: +ISOSORBIDE MONO30 MG PO; -ISOSORBIDE MONO60 MG PO
[2021-10-26 16:53] LABS: BASOPHILS ABSOLUTE AUTO 0.03 K/mm3 (0.00-0.23); BASOPHILS PERCENT AUTO 0 % (0-2); EOSINOPHILS PERCENT AUTO 1 % (0-6); Hematocrit 34.5 % (33.0-51.0); IMMATURE GRAN ABSOLUTE AUTO 0.02 K/mm3 (0.00-0.10); IMMATURE GRAN PERCENT AUTO 0 % (0-1); LYMPHOCYTES ABSOLUTE AUTO 0.67 K/mm3 (0.84-5.20); LYMPHOCYTES PERCENT AUTO 7 % (21-46); MONOCYTES ABSOLUTE AUTO 0.54 K/mm3 (0.16-1.47); MONOCYTES PERCENT AUTO 6 % (4-13); Mean Corpuscular HGB 25.5 pg (26.0-34.0); Mean Corpuscular Volume 88 fL (80-100); Mean Platelet Volume 10.5 fL (9.1-12.4); NEUTROPHILS ABSOLUTE AUTO 8.01 K/mm3 (1.96-9.15); NEUTROPHILS PERCENT AUTO 85 % (41-73); Platelet Count 341 K/mm3 (150-400); RDW Coefficient Variation 17.4 % (11.7-14.2); RDW Standard Deviation 55.4 fL (35.1-46.3); Red Blood Cell Count 3.92 M/mm3 (3.80-5.20); White Blood Cell Count 9.37 K/mm3 (4.00-11.30)
[2021-10-26 17:14] LABS: Albumin/Globulin Ratio 0.8 (0.8-1.8); Bilirubin, Total 0.5 mg/dL (0.1-1.0); Bun/Creatinine Ratio 49.2 (12.0-20.0); Calcium, Blood 8.5 mg/dL (8.5-10.1); Creatinine, Blood 1.2 mg/dL (0.40-1.00); Globulin, Blood 3.8 g/dL (2.2-4.0); Potassium, Blood 4.5 mmol/L (3.5-5.5); Total Protein, Blood 6.8 g/dL (6.4-8.2)
[2021-10-27 04:50] LABS: BASOPHILS ABSOLUTE AUTO 0.03 K/mm3 (0.00-0.23); BASOPHILS PERCENT AUTO 1 % (0-2); EOSINOPHILS ABSOLUTE AUTO 0.23 K/mm3 (0.00-0.68); EOSINOPHILS PERCENT AUTO 4 % (0-6); Hematocrit 30.5 % (33.0-51.0); Hemoglobin 8.9 g/dL (11.5-16.0); IMMATURE GRAN ABSOLUTE AUTO 0.02 K/mm3 (0.00-0.10); IMMATURE GRAN PERCENT AUTO 0 % (0-1); LYMPHOCYTES ABSOLUTE AUTO 0.75 K/mm3 (0.84-5.20); LYMPHOCYTES PERCENT AUTO 14 % (21-46); MONOCYTES ABSOLUTE AUTO 0.48 K/mm3 (0.16-1.47); MONOCYTES PERCENT AUTO 9 % (4-13); Mean Corpuscular HGB 25.5 pg (26.0-34.0); Mean Corpuscular HGB Conc 29.2 g/dL (31.5-36.5); Mean Corpuscular Volume 87 fL (80-100); Mean Platelet Volume 10.6 fL (9.1-12.4); NEUTROPHILS ABSOLUTE AUTO 3.69 K/mm3 (1.96-9.15); NEUTROPHILS PERCENT AUTO 71 % (41-73); Platelet Count 276 K/mm3 (150-400); RDW Coefficient Variation 17.2 % (11.7-14.2); RDW Standard Deviation 54.4 fL (35.1-46.3); Red Blood Cell Count 3.49 M/mm3 (3.80-5.20)
[2021-10-27 05:05] LABS: Bun/Creatinine Ratio 42.6 (12.0-20.0); Calcium, Blood 8.3 mg/dL (8.5-10.1); Creatinine, Blood 1.22 mg/dL (0.40-1.00)
--- NOTE | 2021-10-27 05:16 | NUR ---
SHIFT SUMMARY PT ALERT AND ORIENTED. CONFUSED AT TIMES. UNSURE OF HEALTH HX. PT UNABLE TO PROVIDE RN WITH ADMIT HX. STATES KNOWS ALL OF HEALTH HX AND RN SHOULD CONTACT HIM IN AM FOR INFO REGARDING MEDICATIONS. WILL INFORM DAYSMADHU RN. PT SBA. TO COMMODE. BRIEF IN PLACE FOR INCONTINENCE. PT WAS ON CARDIZEM AT 5 MG/HR, SEE EMAR. PT'S HR LOWERED TO 90'S AND CARDIZEM GTT STOPPED. BP BECAME SOFT DURING THIS TIME. MAP REMAINED ABOVE 65. CARDIZEM REMAINS STOPPED, HR IS AVERAGING 100 OR LESS. PT HAS WOUNDS ON BLE. PT HAS HOME HEALTH NURSE THAT DRESSED WOUNDS 10/26/21. DRESSING C/D/I. NO PICTURE IN CHART D/T RECENT DRESSING CHANGE. OXYGEN SATURATION MAINTAINED ABOVE 92% ON 2 L VIA NC. NO CP OR PRESSURE. PT USES CALL LIGHT NEEDED. BED ALARM IN PLACE D/T CONFUSION AT TIMES. WILL CONT TO MONITOR UNTIL REPORT GIVEN TO DAYSMADHU RN.
--- NOTE | 2021-10-27 05:41 | NUR ---
UPDATE PT HAD QUARTER SIZE AMOUNT OF BRIGHT RED BLOOD ON TP WHEN WIPING. PT STATES SHE HAS FREQENT HEMMORRHOIDS AND THIS IS THE CAUSE. WILL INFORM HOSPITALIST.
--- NOTE | 2021-10-27 05:55 | NUR ---
UPDATE PHYSICIAN NOTIFIED OF RED BLOOD ON TP AND DROP IN HGB FROM 10 TO 8.9. PHYSICIAN TO PUT ORDERS IN.
[2021-10-27 12:58] LABS: Hematocrit 31.9 % (33.0-51.0); Hemoglobin 9.3 g/dL (11.5-16.0)
--- NOTE | 2021-10-27 15:58 | NUR ---
PT NOW MEDICATED WITH ATENOLOL B/P 138/85, PT ASKS THAT SHE NOT RECIVE LASIX THIS LATE
--- NOTE | 2021-10-27 17:32 | NUR ---
SHIFT NOTE PT A/O X3, SHE ANSWERS MOST QUESTIONS APPROPRIATELY, BUT IS VERY FORGETFUL ASKS THE SAME QUESTIONS OVER AND OVER. VSS, BP IMPROVED TOWARDS THE END OF THE SHIFT, ATENOLO WAS ADMINISTERED BUT PT REFUSED LASIX IT WAS LATE IN THE DAY, SHE WAS EDCUATED BUT STS SHE WOULD LIKE TO WAIT UNTIL TOMORROW. PT UP WITH SBA TO BATHROOM T/O THE DAY. PT REPORS INTERMITTENTLY ABD PAIN THAT SHE REFUSES PAINMEDICATION FOR. DENIES CP AND SOB, COARSE LS NOTED T/O LUNG XIE.
[2021-10-28 04:41] LABS: BASOPHILS ABSOLUTE AUTO 0.03 K/mm3 (0.00-0.23); BASOPHILS PERCENT AUTO 1 % (0-2); EOSINOPHILS ABSOLUTE AUTO 0.11 K/mm3 (0.00-0.68); EOSINOPHILS PERCENT AUTO 2 % (0-6); Hematocrit 30.3 % (33.0-51.0); IMMATURE GRAN ABSOLUTE AUTO 0.01 K/mm3 (0.00-0.10); IMMATURE GRAN PERCENT AUTO 0 % (0-1); LYMPHOCYTES PERCENT AUTO 14 % (21-46); MONOCYTES ABSOLUTE AUTO 0.45 K/mm3 (0.16-1.47); MONOCYTES PERCENT AUTO 8 % (4-13); Mean Corpuscular HGB 25.5 pg (26.0-34.0); Mean Corpuscular HGB Conc 29.7 g/dL (31.5-36.5); Mean Corpuscular Volume 86 fL (80-100); Mean Platelet Volume 10.4 fL (9.1-12.4); NEUTROPHILS ABSOLUTE AUTO 4.51 K/mm3 (1.96-9.15); NEUTROPHILS PERCENT AUTO 76 % (41-73); Platelet Count 275 K/mm3 (150-400); RDW Coefficient Variation 17.1 % (11.7-14.2); RDW Standard Deviation 52.4 fL (35.1-46.3); Red Blood Cell Count 3.53 M/mm3 (3.80-5.20); White Blood Cell Count 5.91 K/mm3 (4.00-11.30)
[2021-10-28 05:13] LABS: Creatinine, Blood 1.12 mg/dL (0.40-1.00); Potassium, Blood 4.2 mmol/L (3.5-5.5)
--- NOTE | 2021-10-28 06:59 | NUR ---
OVERNIGHT WENT WELL, ABDOMEN PAIN LLQ ONGOING, SMALL AMOUNT OF BLOOD ON TOILET SEAT R/T HEMORRHOIDSPER PT. OTHERWISE NO SIGNS OF GIB, VSS, NORCO GIVEN TWICE OVERNOC, ROOM AIR, PLEASANTLY CONFUSED, WILL MONITOR
--- NOTE | 2021-10-28 16:24 | NUR ---
SHIFT NOTE PT WAS A/O BUT FORGETFULL AT TIMES. DENIES SOB, ON RA, COARSE CRACKLES T/O ALL LUNG XIE. PT ON TELEMETRY, MONITOR SHOWS AFIB W/ RATE 100-120. EDEMA NOTED IN BLE. WOUND ON RIGHT LEG WITH DRESSING IN PLACE. LASIX GIVEN WITH ADEQUATE OUTPUT. WORKED WITH OT/PT, DECLINED SITTING IN CHAIR FOR MEALS. PT UP TO BSC, NO BM OR ACTIVE BLEEDING NOTED. VSS. DENIES CHEST PAIN. PT REPORTS CONTINUTED PAIN, MULTIPLE DOSES OF NORCO GIVEN. PT REPORTED 10/10 PAIN, HAD TO BE WOKEN UP TO TAKE MEDICATION. PRIMARY RN DAPHNIE IN ROOM DURING ADMINISTRATION AND AWARE.
--- NOTE | 2021-10-29 06:26 | NUR ---
SHIFT SUMMARY ASSUMED CARE OF PT @1905. PT ORIENTED X4 OVERNIGHT, ENDORSES SOME CONFUSION AND STM LOSS BUT EASILY REORIENTED. SHORT OF BREATH WITH EXERTION. VSS, AFIB ON MONITOR IN LOW 100S. UP TO BATHROOM W/SBA. SLEPT WELL WILL PASS ON TO DAY RN
--- NOTE | 2021-10-29 12:05 | NUR ---
PT REPORTS URINARY URGENCY, FREQUENCY AND LOWER ABD DISCOMFORT. UA W CULTURE IF INDICATED ORDERED PER DR HART.
[2021-10-29 12:24] LABS: Source, Urine Straight Cath
[2021-10-29 12:48] LABS: Appearance, Urine Clear (Clear); Bilirubin, Urine Neg (Neg); Blood, Urine Neg (Neg); Color, Urine Yellow (P-Yellow); Glucose Qualitative, Urine Neg (Neg); Ketones, Urine Neg (Neg); Leukocyte Esterase, Urine Neg (Neg); Nitrite, Urine Pos (Neg); Protein, Urine Neg (Neg); Urobilinogen, Urine NORM (Normal)
[2021-10-29 13:07] LABS: Bacteria Many /hpf; Red Blood Cells, Urine 0-2 /hpf (0-2); Squamous Epithelial Cells Rare /hpf (Few); Transitional Epithelial Cells Rare /hpf (0-Rare); White Blood Cells, Urine 0-2 /hpf (0-5)
--- NOTE | 2021-10-29 17:47 | NUR ---
NO ACUTE EVENTS T/O SHIFT. PT HAVING URINARY URGENCY, FREQUENCY AND LOWER ABD PAIN, DR HART NOTIFIED OF + UA. SBP LESS THAN 100 T/O THE AFTERNOON, CARDIZEM DOSES HELD X 2, DR HART NOTIFIED. PT HAS HAD OVER 1000ML OF URINE OUTPUT AND HAS KEPT BLEs ELEVATED ON PILLOWS T/O DAY TO AID IN DIURESIS. PT STATES SHE FEELS WEAK AND TIRED THIS EVENING AFTER MANY TRIPS TO AND FROM THE RESTROOM, ONE PERSON SBA WITH FWW. PT'S IN TO VISIT HER TODAY. WILL CONTINUE TO MONITOR AND GIVE REPORT TO ONCOMING SHIFT RN.
--- NOTE | 2021-10-30 06:34 | NUR ---
SHIFT SUMMARY ASSUMED CARE OF PT @1900. PT SLEPT VERY LITTLE. ORIENTED X4, OCCASIONALLY FORGETFUL OF CALLING FOR ASSISTANCE SO BED ALARM IN PLACE. PRNS GIVEN X1 FOR ABD PAIN PT STATES IS CHRONIC. AFIB 100S-110S ON TELEMETRY. VSS PER PT TREND. WILL CONTINUE TO MONITOR AND PASS ON TO DAY RN.
--- NOTE | 2021-10-30 17:53 | NUR ---
NO ACUTE EVENTS T/O SHIFT. BLEs REMAINED WRAPPED IN JIAN WRAPS AND ELEVATED ON PILLOWS WHENEVER PT IS IN BED. PT AMBULATED TO THE RESTROOM WITH A FWW SBA MANY TIMES T/O THE SHIFT. PT STILL C/O GENERALIZED WEAKNESS AND [place]. HELD CARDIZEM X 2 DOSES AGAIN TODAY FOR LOW BLOOD PRESSURE, DISCUSSED W DR HART, MAY NEED TO ADD MIDODRINE TO MEDICATION REGIMEN. NO FURTHER NEEDS ASSESSED AT THIS TIME, WILL CONTINUE TO MONITOR AND REPORT OFF TO NOC SHIFT RN.
[2021-10-31 03:38] LABS: BASOPHILS ABSOLUTE AUTO 0.02 K/mm3 (0.00-0.23); BASOPHILS PERCENT AUTO 0 % (0-2); EOSINOPHILS ABSOLUTE AUTO 0.13 K/mm3 (0.00-0.68); EOSINOPHILS PERCENT AUTO 2 % (0-6); Hematocrit 32.6 % (33.0-51.0); Hemoglobin 9.6 g/dL (11.5-16.0); IMMATURE GRAN ABSOLUTE AUTO 0.03 K/mm3 (0.00-0.10); IMMATURE GRAN PERCENT AUTO 0 % (0-1); LYMPHOCYTES ABSOLUTE AUTO 0.82 K/mm3 (0.84-5.20); LYMPHOCYTES PERCENT AUTO 11 % (21-46); MONOCYTES ABSOLUTE AUTO 0.74 K/mm3 (0.16-1.47); MONOCYTES PERCENT AUTO 10 % (4-13); Mean Corpuscular HGB 25.1 pg (26.0-34.0); Mean Corpuscular HGB Conc 29.4 g/dL (31.5-36.5); Mean Corpuscular Volume 85 fL (80-100); NEUTROPHILS ABSOLUTE AUTO 5.89 K/mm3 (1.96-9.15); NEUTROPHILS PERCENT AUTO 77 % (41-73); Platelet Count 285 K/mm3 (150-400); RDW Coefficient Variation 17.3 % (11.7-14.2); RDW Standard Deviation 52.9 fL (35.1-46.3); Red Blood Cell Count 3.83 M/mm3 (3.80-5.20); White Blood Cell Count 7.63 K/mm3 (4.00-11.30)
[2021-10-31 03:55] LABS: Albumin, Blood 2.6 g/dL (3.4-5.0); Anion Gap 7 mmol/L (6-16); Blood Urea Nitrogen 41 mg/dL (8-24); Bun/Creatinine Ratio 29.7 (12.0-20.0); CO2, Blood 28 mmol/L (21-32); Calcium, Blood 8.4 mg/dL (8.5-10.1); Chloride, Blood 103 mmol/L (98-108); Creatinine, Blood 1.38 mg/dL (0.40-1.00); Glomerular Filtration Rate 36 (60-); Glucose, Blood 126 mg/dL (70-99); Phosphorus, Blood 3.6 mg/dL (2.5-4.9); Potassium, Blood 3.6 mmol/L (3.5-5.5); Sodium, Blood 138 mmol/L (136-145)
--- NOTE | 2021-10-31 07:23 | NUR ---
SHIFT SUMMARY ASSUMED CARE OF PT @ 1905. PT DIDN'T SLEEP WELL OVERNIGHT, INCREASED CONFUSION BUT EASILY REORIENTED. VSS PER PT TREND. SOME ABD PAIN, PRNS GIVEN. AFIB 110S-120S ON TELE. WILL PASS ON TO DAY RN
--- NOTE | 2021-10-31 17:59 | NUR ---
ASSUMED CARE OF PT AT 0700 TODAY. NO ACUTE EVENTS T/O THE SHIFT. HR HAS TRENDED DOWN WITH BLOOD PRESSURE TOLERATING CARDIZEM DOSAGES TODAY. ABX SWITCHED TO PO. CARDIZEM DOSAGE INCREASED. PT CONTINUES TO TOLERATE AMBULATING TO THE RESTROOM WITH FWW AND SBA, FREQUENCY AND URGENCY OF URINATION HAS DECREASED AFTER PT STARTED ABX. PT'S VISITED HER TODAY. VSS. WILL CONTINUE TO MONITOR AND REPORT TO ONCOMING SHIFT RN.
[2021-11-01 03:49] LABS: BASOPHILS ABSOLUTE AUTO 0.02 K/mm3 (0.00-0.23); BASOPHILS PERCENT AUTO 0 % (0-2); EOSINOPHILS ABSOLUTE AUTO 0.18 K/mm3 (0.00-0.68); EOSINOPHILS PERCENT AUTO 2 % (0-6); Hematocrit 33.7 % (33.0-51.0); Hemoglobin 9.8 g/dL (11.5-16.0); IMMATURE GRAN ABSOLUTE AUTO 0.03 K/mm3 (0.00-0.10); IMMATURE GRAN PERCENT AUTO 0 % (0-1); LYMPHOCYTES ABSOLUTE AUTO 0.85 K/mm3 (0.84-5.20); LYMPHOCYTES PERCENT AUTO 11 % (21-46); MONOCYTES ABSOLUTE AUTO 0.65 K/mm3 (0.16-1.47); MONOCYTES PERCENT AUTO 8 % (4-13); Mean Corpuscular HGB 24.9 pg (26.0-34.0); Mean Corpuscular HGB Conc 29.1 g/dL (31.5-36.5); Mean Corpuscular Volume 86 fL (80-100); Mean Platelet Volume 10.4 fL (9.1-12.4); NEUTROPHILS ABSOLUTE AUTO 6.21 K/mm3 (1.96-9.15); NEUTROPHILS PERCENT AUTO 78 % (41-73); Platelet Count 315 K/mm3 (150-400); RDW Coefficient Variation 17.6 % (11.7-14.2); RDW Standard Deviation 53.7 fL (35.1-46.3); Red Blood Cell Count 3.93 M/mm3 (3.80-5.20); White Blood Cell Count 7.94 K/mm3 (4.00-11.30)
[2021-11-01 04:07] LABS: Albumin, Blood 2.7 g/dL (3.4-5.0); Anion Gap 8 mmol/L (6-16); Blood Urea Nitrogen 39 mg/dL (8-24); Bun/Creatinine Ratio 28.3 (12.0-20.0); CO2, Blood 28 mmol/L (21-32); Calcium, Blood 8.6 mg/dL (8.5-10.1); Chloride, Blood 101 mmol/L (98-108); Creatinine, Blood 1.38 mg/dL (0.40-1.00); Glomerular Filtration Rate 36 (60-); Glucose, Blood 111 mg/dL (70-99); Phosphorus, Blood 3.5 mg/dL (2.5-4.9); Potassium, Blood 3.6 mmol/L (3.5-5.5); Sodium, Blood 137 mmol/L (136-145)
--- NOTE | 2021-11-01 05:40 | NUR ---
PATIENT REMAINS IN BED ALERT AND ORIENTED WITH PERIOD OF FORGETFULNESS AT TIMES. PATIENT MEDICATED AT 2340 FOR GERENALIZED PAIN WHICH WAS EFFECTIVE. PATIENT TRANSFER WITH 1 ASSIST TO AND FROM THE BATHROOM. LUNGS SOUNDS ASSESSED AND NOTED CLEAR WITH DIMINISHED BASE. WOUND TO RIGHT BORDEN ASSESSED AND DRSG REMAINS IN PLACED. JIAN WRAP IN PLACED. PENDING LABS RESULTS. BED ALARM ON FOR SAFETY. CALL LIGHT WITHINREACH. SAFETY MAINTAINED. REPORT GIVEN TO ONCOMING NURSE CONCERNING PATIENT CARE
--- NOTE | 2021-11-01 09:00 | NUR ---
ORTHOSTATIC VS LYING 140/83 HR 107 SITTING 130/75 HR 90 [address]ANDING 112/[address] HART NOTIFIED.
--- NOTE | 2021-11-01 09:02 | NUR ---
AM NOTE PT RESTING IN BED, UP TO BATHROOM WITH 1 PERSON ASSIST. PT ALERT, ORIEINTED x4; FORGETFUL AT TIMES. PT DENIES PAIN, CHEST PAIN/PRESSURE, NAUSEA AND DIZZINESS. PT SOB AT REST, REPORT IMPROVEMENT SINCE ADMISSION SPO2 >90% ON RA. OTHROSTATIC VS COMPELTED, NOTIFIED OF RESULTS, NO NEW ORDERS. TELE AFIB 110'S; BP STABLE. NO OTHER ACUTE CHANGES NOTED. WILL CONTINUE TO MONITOR.
--- NOTE | 2021-11-01 17:35 | NUR ---
SHIFT SUMMARY THIS AFTERNOON, PT REPORTS BURNING SENSATION IN LOWER ABD, MEDICATED PER EMAR. NO OTHER ACUTE CHANGES NOTED. NO S/SX OF DISTRESS NOTED. VSS. WILL CONTINUE TO MONITOR.
--- NOTE | 2021-11-02 01:53 | NUR ---
PATIENT REMAINS IN BED ON ASSESSMENT.PATIENT ALERT WITH SOME FORGETFULNESS AT TIMES, BUT IS AWARE OF HER CARE AND SURRONDINGS.RESP WNL,PATIENT REMAINS WITH SOFT BLOOD PRESSURE. WITH HX OF AFIB. PATIENT ABLE TO USE BATHROOM WITH STANDBY ASSIST. BLE EDEMA WOUND TO RIGHT BORDEN ASSESSED AND DRSG IN PLACED. ALFREDITO KNEES SCAB. PT/OT IN PLACED PATIENT HAS LAXATIVE 11/01.LOOSE STOOL TIMES 1. SAFETY MAINTAINED CALL LIGHT WITHIN REACH.BED ALARM IN PLACED.
[2021-11-02 03:37] LABS: BASOPHILS ABSOLUTE AUTO 0.02 K/mm3 (0.00-0.23); BASOPHILS PERCENT AUTO 0 % (0-2); EOSINOPHILS ABSOLUTE AUTO 0.11 K/mm3 (0.00-0.68); EOSINOPHILS PERCENT AUTO 2 % (0-6); Hematocrit 31.7 % (33.0-51.0); Hemoglobin 9.5 g/dL (11.5-16.0); IMMATURE GRAN ABSOLUTE AUTO 0.02 K/mm3 (0.00-0.10); IMMATURE GRAN PERCENT AUTO 0 % (0-1); LYMPHOCYTES ABSOLUTE AUTO 0.67 K/mm3 (0.84-5.20); LYMPHOCYTES PERCENT AUTO 9 % (21-46); MONOCYTES ABSOLUTE AUTO 0.53 K/mm3 (0.16-1.47); MONOCYTES PERCENT AUTO 7 % (4-13); Mean Corpuscular HGB 25.4 pg (26.0-34.0); Mean Corpuscular Volume 85 fL (80-100); Mean Platelet Volume 10.3 fL (9.1-12.4); NEUTROPHILS PERCENT AUTO 82 % (41-73); Platelet Count 269 K/mm3 (150-400); RDW Coefficient Variation 17.6 % (11.7-14.2); RDW Standard Deviation 54.1 fL (35.1-46.3); Red Blood Cell Count 3.74 M/mm3 (3.80-5.20); White Blood Cell Count 7.45 K/mm3 (4.00-11.30)
[2021-11-02 03:59] LABS: Albumin, Blood 2.6 g/dL (3.4-5.0); Anion Gap 5 mmol/L (6-16); Blood Urea Nitrogen 35 mg/dL (8-24); Bun/Creatinine Ratio 24.8 (12.0-20.0); CO2, Blood 30 mmol/L (21-32); Calcium, Blood 8.4 mg/dL (8.5-10.1); Chloride, Blood 102 mmol/L (98-108); Creatinine, Blood 1.41 mg/dL (0.40-1.00); Glomerular Filtration Rate 35 (60-); Glucose, Blood 111 mg/dL (70-99); Phosphorus, Blood 3.4 mg/dL (2.5-4.9); Potassium, Blood 3.6 mmol/L (3.5-5.5); Sodium, Blood 137 mmol/L (136-145)
[2021-11-02] MEDS ORDERED: DILT60 PO (11:54)
[2021-11-02] MEDS ORDERED: BACTRIM 400-801 EACH PO (11:55)
--- NOTE | 2021-11-02 14:48 | NUR ---
DISCHARGE SUMMARY PT A&Ox4; CALM AND COOPERATIVE WITH CARE. PT RESTING IN BED FOR MAJORITY OF SHIFT. UP IN CHAIR FOR MEALS AND SBA WITH WALKER TO BATHROOM. PT REPORTS BURNING CRAMPING IN ABD, MEDICATED PER EMAR. SOB WITH EXERTION; SPO2 >90% ON RA. TELE AFIB, BP STABLE. PT DENIES NAUSEA AND DIZZINESS T/O SHIFT. OTHER VSS. PT AND SPOUSE EDUCATED ON DISCHARGE INSTRUCTIONS, FOLLOW UP APPOINTMENTS AND MEDICATIONS. PRESCRIPTIONS CALLED TO [facility] IN [place], PER PT REQUEST. PT EDUCATED ON SAFETY AT HOME AND FALL PREVENTION. PT EDUCATED ON NEED FOR ADDTIONAL ASSISTANCE PROVIDED CAREGIVER LIST AND NOTIFIED HOME HEALTH WILL BE OUT. PT LEFT ROOM VIA WHEELCHAIR AT 1439.
== END 2021-11-02 14:39 | disposition home health service (06) | DRG 291 ==
LOC: ER 16:15 → PCU 20:15
PROVIDERS: Family Medicine; Internal Medicine; Physician Assistant; ADMIT Family Medicine
DX: I13.0 Hypertensive heart and chronic kidney disease with heart failure and stage 1 through stage 4 chronic kidney disease, or unspecified chronic kidney disease (principal); I50.33 Acute on chronic diastolic (congestive) heart failure; J84.9 Interstitial pulmonary disease, unspecified; N17.9 Acute kidney failure, unspecified; N39.0 Urinary tract infection, site not specified; B96.20 Unspecified Escherichia coli [E. coli] as the cause of diseases classified elsewhere; I87.8 Other specified disorders of veins; I35.0 Nonrheumatic aortic (valve) stenosis; I25.10 Atherosclerotic heart disease of native coronary artery without angina pectoris; D50.0 Iron deficiency anemia secondary to blood loss (chronic); K64.9 Unspecified hemorrhoids; I48.91 Unspecified atrial fibrillation; D63.1 Anemia in chronic kidney disease; F41.9 Anxiety disorder, unspecified; N18.30 Chronic kidney disease, stage 3 unspecified; I27.20 Pulmonary hypertension, unspecified; Z79.82 Long term (current) use of aspirin; Z79.899 Other long term (current) drug therapy; Z88.5 Allergy status to narcotic agent; Z28.21 Immunization not carried out because of patient refusal; Z90.49 Acquired absence of other specified parts of digestive tract; Z90.710 Acquired absence of both cervix and uterus; Z95.9 Presence of cardiac and vascular implant and graft, unspecified; Z86.73 Personal history of transient ischemic attack (TIA), and cerebral infarction without residual deficits; Z95.5 Presence of coronary angioplasty implant and graft; Z88.8 Allergy status to other drugs, medicaments and biological substances
CPT/HCPCS: 36415; 71046; 80048; 80053; 80069; 81001; 83880; 84443; 85014; 85018; 85025; 87077; 87086; 87186; 93005; 93010; 96374; 96376; 97110; 97116; 97162; 97166; 97530; 97535; 99285-25; A9270; J0282; J0696; J1940; J7050

== ENCOUNTER 2021-11-05 15:32 | Emergency (ER) | payer MEDICARE ==
[~2021-11-05] VITALS: Ht 167.6 cm; Wt 59.0 kg
[~2021-11-05 15:32] MED LIST changes: +BACTRIM 400-801 EACH PO; +DILT60 PO
[2021-11-05 16:00] LABS: BASOPHILS ABSOLUTE AUTO 0.03 K/mm3 (0.00-0.23); BASOPHILS PERCENT AUTO 0 % (0-2); EOSINOPHILS ABSOLUTE AUTO 0.15 K/mm3 (0.00-0.68); EOSINOPHILS PERCENT AUTO 2 % (0-6); Hemoglobin 9.6 g/dL (11.5-16.0); IMMATURE GRAN ABSOLUTE AUTO 0.03 K/mm3 (0.00-0.10); IMMATURE GRAN PERCENT AUTO 0 % (0-1); LYMPHOCYTES ABSOLUTE AUTO 0.52 K/mm3 (0.84-5.20); LYMPHOCYTES PERCENT AUTO 6 % (21-46); MONOCYTES ABSOLUTE AUTO 0.62 K/mm3 (0.16-1.47); MONOCYTES PERCENT AUTO 7 % (4-13); Mean Corpuscular HGB 25.4 pg (26.0-34.0); Mean Corpuscular Volume 85 fL (80-100); Mean Platelet Volume 10.4 fL (9.1-12.4); NEUTROPHILS ABSOLUTE AUTO 7.28 K/mm3 (1.96-9.15); NEUTROPHILS PERCENT AUTO 85 % (41-73); Platelet Count 260 K/mm3 (150-400); RDW Coefficient Variation 17.6 % (11.7-14.2); RDW Standard Deviation 54.1 fL (35.1-46.3); Red Blood Cell Count 3.78 M/mm3 (3.80-5.20); White Blood Cell Count 8.63 K/mm3 (4.00-11.30)
[2021-11-05 16:13] LABS: Albumin, Blood 2.8 g/dL (3.4-5.0); Albumin/Globulin Ratio 0.8 (0.8-1.8); Bilirubin, Total 0.3 mg/dL (0.1-1.0); Bun/Creatinine Ratio 37.3 (12.0-20.0); Calcium, Blood 8.2 mg/dL (8.5-10.1); Creatinine, Blood 1.5 mg/dL (0.40-1.00); Globulin, Blood 3.6 g/dL (2.2-4.0); Potassium, Blood 3.9 mmol/L (3.5-5.5); Total Protein, Blood 6.4 g/dL (6.4-8.2)
== END 2021-11-05 19:20 | disposition home or self-care (01) ==
LOC: ER 15:32
PROVIDERS: Physician Assistant
DX: I11.0 Hypertensive heart disease with heart failure (principal); I50.9 Heart failure, unspecified; I25.10 Atherosclerotic heart disease of native coronary artery without angina pectoris; Z86.73 Personal history of transient ischemic attack (TIA), and cerebral infarction without residual deficits; Z88.8 Allergy status to other drugs, medicaments and biological substances; Z79.899 Other long term (current) drug therapy; Z79.82 Long term (current) use of aspirin
CPT/HCPCS: 71046; 80053; 83880; 84484; 85025; 93005; 93010; 99285-25

== ENCOUNTER 2021-11-25 22:50 | Emergency (ER) | payer MEDICARE ==
[~2021-11-25] VITALS: Ht 167.6 cm; Wt 59.0 kg
[2021-11-26 03:25] LABS: BASOPHILS ABSOLUTE AUTO 0.01 K/mm3 (0.00-0.23); BASOPHILS PERCENT AUTO 0 % (0-2); EOSINOPHILS ABSOLUTE AUTO 0.18 K/mm3 (0.00-0.68); EOSINOPHILS PERCENT AUTO 2 % (0-6); Hematocrit 35.2 % (33.0-51.0); Hemoglobin 10.7 g/dL (11.5-16.0); IMMATURE GRAN ABSOLUTE AUTO 0.03 K/mm3 (0.00-0.10); IMMATURE GRAN PERCENT AUTO 0 % (0-1); LYMPHOCYTES ABSOLUTE AUTO 0.99 K/mm3 (0.84-5.20); LYMPHOCYTES PERCENT AUTO 10 % (21-46); MONOCYTES ABSOLUTE AUTO 0.66 K/mm3 (0.16-1.47); MONOCYTES PERCENT AUTO 7 % (4-13); Mean Corpuscular HGB 24.7 pg (26.0-34.0); Mean Corpuscular HGB Conc 30.4 g/dL (31.5-36.5); Mean Corpuscular Volume 81 fL (80-100); Mean Platelet Volume 11.2 fL (9.1-12.4); NEUTROPHILS ABSOLUTE AUTO 7.69 K/mm3 (1.96-9.15); NEUTROPHILS PERCENT AUTO 80 % (41-73); Platelet Count 282 K/mm3 (150-400); RDW Coefficient Variation 17.2 % (11.7-14.2); RDW Standard Deviation 49.8 fL (35.1-46.3); Red Blood Cell Count 4.34 M/mm3 (3.80-5.20); White Blood Cell Count 9.56 K/mm3 (4.00-11.30)
[2021-11-26 03:25] LABS: Source, Urine Voided
[2021-11-26 03:27] LABS: Bilirubin, Urine Neg (Neg); Blood, Urine 1+ (Neg); Glucose Qualitative, Urine Neg (Neg); Ketones, Urine Neg (Neg); Leukocyte Esterase, Urine 3+ (Neg); Nitrite, Urine Neg (Neg); Protein, Urine 1+ (Neg); Urobilinogen, Urine NORM (Normal)
[2021-11-26 03:42] LABS: Appearance, Urine Hazy (Clear); Color, Urine Yellow (P-Yellow)
[2021-11-26 03:43] LABS: Bacteria Many /hpf; Calcium Oxalate Crystals Few /hpf; Red Blood Cells, Urine 0-2 /hpf (0-2); Squamous Epithelial Cells Rare /hpf (Few); White Blood Cells, Urine TNTC /hpf (0-5)
[2021-11-26 03:44] LABS: Albumin, Blood 2.9 g/dL (3.4-5.0); Albumin/Globulin Ratio 0.6 (0.8-1.8); Bilirubin, Total 0.7 mg/dL (0.1-1.0); Bun/Creatinine Ratio 29.2 (12.0-20.0); Calcium, Blood 9.1 mg/dL (8.5-10.1); Creatinine, Blood 1.78 mg/dL (0.40-1.00); Globulin, Blood 4.6 g/dL (2.2-4.0); Potassium, Blood 3.7 mmol/L (3.5-5.5); Total Protein, Blood 7.5 g/dL (6.4-8.2)
[2021-11-26] MEDS ORDERED: CEPH500 PO (06:10)
== END 2021-11-26 07:42 | disposition home or self-care (01) ==
LOC: ER 22:50
PROVIDERS: Emergency Medicine
DX: R60.0 Localized edema (principal); N39.0 Urinary tract infection, site not specified; Z88.8 Allergy status to other drugs, medicaments and biological substances; Z88.1 Allergy status to other antibiotic agents; Z88.5 Allergy status to narcotic agent; Z79.899 Other long term (current) drug therapy; Z79.82 Long term (current) use of aspirin; I25.10 Atherosclerotic heart disease of native coronary artery without angina pectoris; I11.0 Hypertensive heart disease with heart failure; I50.9 Heart failure, unspecified
CPT/HCPCS: 36415; 71045; 80053; 81001; 83880; 85025; 87077; 87086; 87186; 93005; 93010; 99284-25

== ENCOUNTER 2021-12-15 15:49 | Inpatient (IN) | payer MEDICARE ==
[~2021-12-15] VITALS: Ht 165.1 cm; Wt 63.1 kg
[~2021-12-15 15:49] MED LIST changes: +CEPH500 PO
[2021-12-15 16:07] LABS: BASOPHILS ABSOLUTE AUTO 0.01 K/mm3 (0.00-0.23); BASOPHILS PERCENT AUTO 0 % (0-2); EOSINOPHILS ABSOLUTE AUTO 0.08 K/mm3 (0.00-0.68); EOSINOPHILS PERCENT AUTO 1 % (0-6); Hemoglobin 9.5 g/dL (11.5-16.0); IMMATURE GRAN PERCENT AUTO 1 % (0-1); LYMPHOCYTES ABSOLUTE AUTO 0.92 K/mm3 (0.84-5.20); LYMPHOCYTES PERCENT AUTO 7 % (21-46); MONOCYTES ABSOLUTE AUTO 0.86 K/mm3 (0.16-1.47); MONOCYTES PERCENT AUTO 7 % (4-13); Mean Corpuscular HGB 24.2 pg (26.0-34.0); Mean Corpuscular HGB Conc 31.7 g/dL (31.5-36.5); Mean Corpuscular Volume 76 fL (80-100); Mean Platelet Volume 11.1 fL (9.1-12.4); NEUTROPHILS ABSOLUTE AUTO 10.74 K/mm3 (1.96-9.15); NEUTROPHILS PERCENT AUTO 85 % (41-73); NRBC ABSOLUTE 0.03 K/mm3 (0.00-0.02); NRBC Auto 0.2 /100 WBC (0.0-0.2); Platelet Count 291 K/mm3 (150-400); RDW Coefficient Variation 17.9 % (11.7-14.2); Red Blood Cell Count 3.93 M/mm3 (3.80-5.20); White Blood Cell Count 12.71 K/mm3 (4.00-11.30)
[2021-12-15 16:34] LABS: Alanine Aminotransfer (ALT/SGP 156 U/L (12-78); Albumin, Blood 2.4 g/dL (3.4-5.0); Albumin/Globulin Ratio 0.6 (0.8-1.8); Alk Phos 197 U/L (50-136); Anion Gap 8 mmol/L (6-16); Aspartate Aminotrans (AST/SGOT 137 U/L (12-37); Bilirubin, Total 0.5 mg/dL (0.1-1.0); Blood Urea Nitrogen 105 mg/dL (8-24); Bun/Creatinine Ratio 45.9 (12.0-20.0); CO2, Blood 24 mmol/L (21-32); Calcium, Blood 8.2 mg/dL (8.5-10.1); Chloride, Blood 100 mmol/L (98-108); Creatinine, Blood 2.29 mg/dL (0.40-1.00); Globulin, Blood 3.7 g/dL (2.2-4.0); Glomerular Filtration Rate 20 (60-); Glucose, Blood 128 mg/dL (70-99); Potassium, Blood 5.9 mmol/L (3.5-5.5); Sodium, Blood 132 mmol/L (136-145); Total Protein, Blood 6.1 g/dL (6.4-8.2)
[2021-12-15 16:42] LABS: Ethanol (Alcohol), Blood, Med <3 mg/dL
[2021-12-15 17:09] LABS: Source, Urine Straight Cath
[2021-12-15 17:18] LABS: Appearance, Urine Hazy (Clear); Bilirubin, Urine Neg (Neg); Blood, Urine 1+ (Neg); Color, Urine Yellow (P-Yellow); Glucose Qualitative, Urine Neg (Neg); Ketones, Urine Neg (Neg); Leukocyte Esterase, Urine 2+ (Neg); Nitrite, Urine Neg (Neg); Protein, Urine 1+ (Neg); Urobilinogen, Urine NORM (Normal)
[2021-12-15 17:29] LABS: White Blood Cells, Urine TNTC /hpf (0-5)
[2021-12-15 17:30] LABS: Bacteria Many /hpf; Squamous Epithelial Cells Few /hpf (Few); Transitional Epithelial Cells Few /hpf (0-Rare)
[2021-12-15 17:41] LABS: U Amphetamine Screen Not Detected; U Barbituate Screen Not Detected; U Benzodiazapine Screen DETECTED; U Buprenorphine Screen Not Detected; U Cannabinoids Screen Not Detected; U Cocaine Screen Not Detected; U Methadone Screen Not Detected; U Methamphetamine Screen Not Detected; U Opiates Screen DETECTED; U Oxycodone Screen Not Detected; U Phencyclidine Screen Not Detected; U Propoxyphene Screen Not Detected
[2021-12-16 05:37] LABS: BASOPHILS ABSOLUTE AUTO 0.01 K/mm3 (0.00-0.23); BASOPHILS PERCENT AUTO 0 % (0-2); EOSINOPHILS ABSOLUTE AUTO 0.09 K/mm3 (0.00-0.68); EOSINOPHILS PERCENT AUTO 1 % (0-6); Hematocrit 27.7 % (33.0-51.0); Hemoglobin 8.7 g/dL (11.5-16.0); IMMATURE GRAN ABSOLUTE AUTO 0.07 K/mm3 (0.00-0.10); IMMATURE GRAN PERCENT AUTO 1 % (0-1); LYMPHOCYTES ABSOLUTE AUTO 0.76 K/mm3 (0.84-5.20); LYMPHOCYTES PERCENT AUTO 8 % (21-46); MONOCYTES ABSOLUTE AUTO 0.61 K/mm3 (0.16-1.47); MONOCYTES PERCENT AUTO 6 % (4-13); Mean Corpuscular HGB 24.6 pg (26.0-34.0); Mean Corpuscular HGB Conc 31.4 g/dL (31.5-36.5); Mean Corpuscular Volume 78 fL (80-100); Mean Platelet Volume 10.8 fL (9.1-12.4); NEUTROPHILS ABSOLUTE AUTO 8.58 K/mm3 (1.96-9.15); NEUTROPHILS PERCENT AUTO 85 % (41-73); Platelet Count 194 K/mm3 (150-400); RDW Coefficient Variation 17.8 % (11.7-14.2); RDW Standard Deviation 49.3 fL (35.1-46.3); Red Blood Cell Count 3.54 M/mm3 (3.80-5.20); White Blood Cell Count 10.12 K/mm3 (4.00-11.30)
[2021-12-16 06:08] LABS: Bilirubin, Total 0.6 mg/dL (0.1-1.0); Bun/Creatinine Ratio 44.7 (12.0-20.0); Calcium, Blood 8.5 mg/dL (8.5-10.1); Creatinine, Blood 2.19 mg/dL (0.40-1.00); Potassium, Blood 5.4 mmol/L (3.5-5.5)
[2021-12-16] MEDS ORDERED: HYDHCL25 (15:50)
[2021-12-16] MEDS ORDERED: ELIQUIS2.5 MG PO (15:50)
--- NOTE | 2021-12-16 18:18 | NUR ---
SHIFT NOTE PT ARRIVED FROM ER THIS AFTERNOON WITH DX OF BRADYCARDIA, UPON ARRIVAL PT HAD NOTED SINUS TACH. VSS OTHERWISE. PT CONFUSED, POOR HISTORIAN, BUT WAS ABLE TO HELO ANSWER ADMIT QUESTIONS, WAS NOT HERE FOR ADMISSION. PT LIVES AT HOME WITH SPOUSE, PT WAS FOUND DOWN LAST NOC FOR UNKNOWN AMT OF TIME AND UNRESPONSIVE, UPON ARRIVAL TO ER PT WITH HR IN THE 40s, WAS EXTERNALLY PACED IN ER WITH LEVOPHED DRIP. PT'S CONDITION IMPROVED IN ER AND WAS STATUS CHANGED TO PCU STATUS. PT DENIES CP OR SOB ON ARRIVAL. C/O LOWER LEG PAIN. ULCERATIONS NOTED TO BLE AND HEELS OF FEET, WOUNDS PHOTOGRAPHED AND REDRESSED ON ARRIVAL. LT FOOT DROP NOTED, FOOT DROP BOOTIES PALCED. PT WAS TREATED THIS EVENING FOR PAIN WHICH WAS TOELRATED WELL. PT RESTING WELL IN BED
--- NOTE | 2021-12-16 20:40 | NUR ---
CALL TO DR. TRISTAN REGARDING PATIENT CONDITION. OBSERVED PT TO BE ANXIOUS, TACHYPNEIC AND WITH HEART RATES IN THE 110S - 120S. PT C/O CHST FEELING TIGHT WHEN TRYING TO TAKE A DEEP BREATH. AUSCULTATED CRACKLES IN ALL LUNG XIE WITH DIMINISHED BREATH SOUNDS IN THE BASES. PT HOME MEDS OF ATENOLOL, CARDIZEM AND TORSEMIDE NOT YET RESTARTED. ORDERS RECEIVED FOR ONE TIME DOSE OF LASIX AND TO RESTART PT'S HOME DOSE OF 50 MG ATENOLOL DAILY WITH A DOSE NOW.
[2021-12-17 05:07] LABS: BASOPHILS ABSOLUTE AUTO 0.01 K/mm3 (0.00-0.23); BASOPHILS PERCENT AUTO 0 % (0-2); EOSINOPHILS ABSOLUTE AUTO 0.14 K/mm3 (0.00-0.68); EOSINOPHILS PERCENT AUTO 1 % (0-6); Hematocrit 32.6 % (33.0-51.0); IMMATURE GRAN PERCENT AUTO 1 % (0-1); LYMPHOCYTES ABSOLUTE AUTO 0.84 K/mm3 (0.84-5.20); LYMPHOCYTES PERCENT AUTO 6 % (21-46); MONOCYTES ABSOLUTE AUTO 0.79 K/mm3 (0.16-1.47); MONOCYTES PERCENT AUTO 6 % (4-13); Mean Corpuscular HGB 24.2 pg (26.0-34.0); Mean Corpuscular HGB Conc 30.7 g/dL (31.5-36.5); Mean Corpuscular Volume 79 fL (80-100); Mean Platelet Volume 10.3 fL (9.1-12.4); NEUTROPHILS ABSOLUTE AUTO 12.17 K/mm3 (1.96-9.15); NEUTROPHILS PERCENT AUTO 87 % (41-73); NRBC ABSOLUTE 0.02 K/mm3 (0.00-0.02); NRBC Auto 0.1 /100 WBC (0.0-0.2); Platelet Count 274 K/mm3 (150-400); RDW Standard Deviation 49.8 fL (35.1-46.3); Red Blood Cell Count 4.13 M/mm3 (3.80-5.20); White Blood Cell Count 14.05 K/mm3 (4.00-11.30)
[2021-12-17 05:27] LABS: Anion Gap 6 mmol/L (6-16); Blood Urea Nitrogen 92 mg/dL (8-24); Bun/Creatinine Ratio 46.7 (12.0-20.0); CO2, Blood 27 mmol/L (21-32); Calcium, Blood 8.7 mg/dL (8.5-10.1); Chloride, Blood 102 mmol/L (98-108); Creatinine, Blood 1.97 mg/dL (0.40-1.00); Glomerular Filtration Rate 24 (60-); Glucose, Blood 108 mg/dL (70-99); Phosphorus, Blood 4.1 mg/dL (2.5-4.9); Potassium, Blood 5.2 mmol/L (3.5-5.5); Sodium, Blood 135 mmol/L (136-145)
--- NOTE | 2021-12-17 13:37 | NUR ---
Spiritual Care Visit. ...by Pt. request. Pt. is awake in bed and welcomes my visit. Pt. is unsettled because by her ability to stay focused. Provided a calming presence and pastoral encourage pt. as she displays evidence of clear thinking. Explored Pts. merna and belief nad facilitated a life review. Pt. is pleasant and displayed ability to remember with great detail and humor. Pt. verbalized that she was getting tired so... Prayed with Pt. (as I held her hand). Pt. verbalized gratitude for the spiritual care visit.
--- NOTE | 2021-12-17 18:30 | NUR ---
SHIFT NOTE PT ALERT, REMAINS ORIENTED TO SELF AND SURROUNDINGS. SHE IS MORE ANXIOUS AND PARANOID TODAY. PT WORKED WITH PHYSICAL THERAPY TODAY AND OCCUPATIONAL THERAPY TODAY, WAS UP TO BEDSIDE CHAIR FOR ABOUT AN HOUR TODAY. PT ALSO NOTED TO BE PLACING FINGERS IN RECTUM TODAY WHILE ON BEDSIDE COMMODE STS "I WAS TRYING TO GET MYSELF GOING", EXTERNAL HEMRROIDS ARE NOW MORE SWOLLEN AND BLEEDING, SALINE SOAKED GAUZE APPLIED TO RECTUM. VSS. PT WAS RESTARTED ON CERDIZEM THIS SHIFT FOR AFIB IN THE 130s, PT REMAINS IN AFIB BUT WITH HR 90-110.
[2021-12-17] MEDS ORDERED: DOCU100 PO (22:27)
--- NOTE | 2021-12-17 23:00 | NUR ---
CALL TO DR. GREENE REGARDING PATIENT STATUS HEART RATE PERSISTING IN THE 110S - 120S, SOMETIMES INTO 130S. HOME DOSE OF ATENOLOL RESTARTED LAST NIGHT. NEW ORDER FOR 30 MG DILTIAZEM PO BEFORE MEALS STARTED TODAY. HOME DOSE IS 60 MG DILTIZEM PO TID. ORDER RECEIVED TO INCREASE DILTIAZEM DOSE TO 60 MG PO STARTING NOW.
[2021-12-18 12:03] LABS: BASOPHILS ABSOLUTE AUTO 0.02 K/mm3 (0.00-0.23); BASOPHILS PERCENT AUTO 0 % (0-2); EOSINOPHILS ABSOLUTE AUTO 0.25 K/mm3 (0.00-0.68); EOSINOPHILS PERCENT AUTO 2 % (0-6); Hematocrit 31.4 % (33.0-51.0); Hemoglobin 9.3 g/dL (11.5-16.0); IMMATURE GRAN ABSOLUTE AUTO 0.12 K/mm3 (0.00-0.10); IMMATURE GRAN PERCENT AUTO 1 % (0-1); LYMPHOCYTES ABSOLUTE AUTO 0.79 K/mm3 (0.84-5.20); LYMPHOCYTES PERCENT AUTO 7 % (21-46); MONOCYTES ABSOLUTE AUTO 0.68 K/mm3 (0.16-1.47); MONOCYTES PERCENT AUTO 6 % (4-13); Mean Corpuscular HGB 23.8 pg (26.0-34.0); Mean Corpuscular HGB Conc 29.6 g/dL (31.5-36.5); Mean Corpuscular Volume 81 fL (80-100); Mean Platelet Volume 10.5 fL (9.1-12.4); NEUTROPHILS ABSOLUTE AUTO 9.96 K/mm3 (1.96-9.15); NEUTROPHILS PERCENT AUTO 84 % (41-73); NRBC ABSOLUTE 0.02 K/mm3 (0.00-0.02); NRBC Auto 0.2 /100 WBC (0.0-0.2); Platelet Count 276 K/mm3 (150-400); RDW Coefficient Variation 18.3 % (11.7-14.2); RDW Standard Deviation 51.8 fL (35.1-46.3); White Blood Cell Count 11.82 K/mm3 (4.00-11.30)
[2021-12-18 12:19] LABS: Bun/Creatinine Ratio 50.3 (12.0-20.0); Calcium, Blood 8.3 mg/dL (8.5-10.1); Creatinine, Blood 1.45 mg/dL (0.40-1.00); Potassium, Blood 4.9 mmol/L (3.5-5.5)
--- NOTE | 2021-12-18 18:04 | NUR ---
SHIFT NOTE PT ALERT, ORIENTED TO SELF, PLACE, FAMILY. PT WITH GOOD APPETITE TODAY, EATS A GOOD DEAL OF OF HER TRAYS. PT REMAINS A SBA TO BEDSIDE COMMODE. PT CONTINUES TO BE ANXIOUS, SHE FIXATES ON MANY THINGS. VSS. GOOD RATE CONTROL WITH CARDIZEM DOSE CHANGE TODAY. REMAINS IN AFIB IN 90s-100s. DENIES CP OR SOB. REPORTS CHRONIC ABD PAIN THAT IS TREATED PER EMAR. PER DR KESSLER PLAN FOR D/C TOMORROW OR MONDAY TO HOME WITH HOME HEALTH.
--- NOTE | 2021-12-19 06:39 | NUR ---
Assumed care of pt at 1900. A/Ox4. No reports of pain, CP/pressure. Patient is very anxious about going home and the inability to take care of herself properly. handles her medications. Patient is incontinent at times. BLE wounds covered and C/D/I. HR sustaining 120-150. MD notified, meds ordered. Meds had no effect on HR. MD made aware and order for Cardizem gtt. BP stable with SBP 137, Cardizem started at 5. Will report to carline RN.
--- NOTE | 2021-12-19 17:14 | NUR ---
SHIFT SUMMARY Pt is a/o x 4. She denies any pain. She remains on Room air and has no SOB. At the start of the shift she was on cardizem gtt @ 10 mg but her heart rate was trending down so it was titrated down and eventually turned off @ about 11:25. Her heart rate has maintained in the 80's-90's since then. This afternoon about 13:30 she started having pauses which started at 1 second and have inreased to [address] Waite was notified and ordered a cardio consult which was called in to Dr Dean. Dr Dean gave some orders for med changes and said he would be by before the end of the day. She has wounds to both lower legs and the dressings were changed and her legs and feet have been elevated. She was medicated for pain prior to the dressing changes. She has urinary frequency but does not always void when she feels the urge. She is a SBA to [facility] for toileting and she calls appropriately. Her has been here a few times today. They are both very pleasant and kind. She is sitting up in bed eating dinner now. She has her call light in reach.
--- NOTE | 2021-12-19 20:54 | NUR ---
Dr. Waite called for update on the cardio consult and if pt has been seen. Updated MD that cardio said would see pt in AM.
--- NOTE | 2021-12-19 21:34 | NUR ---
Assumed care of pt at 1900. A/Ox4. On RA and tele in place, SR in 80's with 1-3 second pauses. aware and cardiology to see her in AM. Pt laying in bed with Kpad to abdomen. VSS.
--- NOTE | 2021-12-20 06:22 | NUR ---
Assumed care of pt at 1900. A/Ox4. No reports of pain, CP/pressure. Increase in patients urinary urgency/frequency noted with sometimes twice hourly using BSC and needing to sit on the BSC for up to 15 minutes at a time. Still urinating small amounts at a time. BLE wounds covered and C/D/I, carline changed dressings today. Afib on tele in 80's at beginning of shift with 1-[address] Waite ordered Cardio consult which was called in to Dr. Dean by carline GRIMM. Carline GRIMM said than Dr. Dean said he would be by to see patient tonight, but when it got to be later in the evening he was called back and instead will see pt in morning. By end of shift, HR averaging 115-120, with peaks up to 140. Still has multiple pauses, however has decreased in length from 3 sec to 1-2 sec. Patient was able to get a few hours of uninterrupted sleep. Will report to carline GRIMM
--- NOTE | 2021-12-20 11:16 | NUR ---
AM NOTE Pt alert, orineted X4; anxious, cooperative with care. Pt up to bsc with sba. Pt report pain to abd and ble, states she has large lesion in abd, medicated per emar. Pt reports "small amount" of sob with activity, spo2 >90% on ra. Pt denies chest pain/pressure, nausea, dizziness and numb/tingling. Tele afib 120-130, medicated with schedule cardizem, bp stable, no noted pausea by tele at this time. Abd painful, normoactive bt t/o, abd soft. Ble 2+ pitting edema noted, scattered wounds to legs, plans for dressing change today. Vss. No other acute chagnes noted. Will continue to monitor.
--- NOTE | 2021-12-20 12:09 | NUR ---
Dr Dean at bedside, plans for pacemaker placement tomorrow, plans for npo at midnight. Educated pt on pacemaker placement, answered questions. Pt states sheis anxious about the procedure. Will continue to monitor.
--- NOTE | 2021-12-20 17:21 | NUR ---
Shift Summary Pt heart rate 90-120's with po cardizem, bp stable. Plans for pacemaker placement tomorrow, NPO at midnight, hold heparin per Dr Dean. Pt continues to be up multiple times to bsc with sba. Bed bath completed. Other vss. no other acute changes noted. Will continue to monitor until report given to oncoming rn.
[2021-12-21 04:27] LABS: BASOPHILS ABSOLUTE AUTO 0.03 K/mm3 (0.00-0.23); BASOPHILS PERCENT AUTO 0 % (0-2); EOSINOPHILS ABSOLUTE AUTO 0.27 K/mm3 (0.00-0.68); EOSINOPHILS PERCENT AUTO 2 % (0-6); Hematocrit 32.3 % (33.0-51.0); Hemoglobin 9.6 g/dL (11.5-16.0); IMMATURE GRAN ABSOLUTE AUTO 0.07 K/mm3 (0.00-0.10); IMMATURE GRAN PERCENT AUTO 1 % (0-1); LYMPHOCYTES ABSOLUTE AUTO 1.11 K/mm3 (0.84-5.20); LYMPHOCYTES PERCENT AUTO 10 % (21-46); MONOCYTES ABSOLUTE AUTO 0.61 K/mm3 (0.16-1.47); MONOCYTES PERCENT AUTO 6 % (4-13); Mean Corpuscular HGB 24.1 pg (26.0-34.0); Mean Corpuscular HGB Conc 29.7 g/dL (31.5-36.5); Mean Corpuscular Volume 81 fL (80-100); Mean Platelet Volume 10.4 fL (9.1-12.4); NEUTROPHILS ABSOLUTE AUTO 8.95 K/mm3 (1.96-9.15); NEUTROPHILS PERCENT AUTO 81 % (41-73); Platelet Count 230 K/mm3 (150-400); RDW Coefficient Variation 18.7 % (11.7-14.2); RDW Standard Deviation 53.3 fL (35.1-46.3); Red Blood Cell Count 3.99 M/mm3 (3.80-5.20); White Blood Cell Count 11.04 K/mm3 (4.00-11.30)
[2021-12-21 05:00] LABS: Albumin, Blood 2.7 g/dL (3.4-5.0); Albumin/Globulin Ratio 0.7 (0.8-1.8); Bilirubin, Total 0.5 mg/dL (0.1-1.0); Calcium, Blood 8.9 mg/dL (8.5-10.1); Creatinine, Blood 1.16 mg/dL (0.40-1.00); Globulin, Blood 3.7 g/dL (2.2-4.0); Potassium, Blood 4.8 mmol/L (3.5-5.5); Total Protein, Blood 6.4 g/dL (6.4-8.2)
--- NOTE | 2021-12-21 06:10 | NUR ---
SHIFT SUMMARY PATIENT ALERT AND ORIENTED x3-4, ABLE TO MAKE NEEDS KNOWN TO STAFF. VSS. HR ELEVATED THIS SHIFT TO 110s-120s, UPWARDS OF 130s AT TIMES. IV PLACED TO LEFT AC FOR PROCEDURE TODAY, PATIENT REMAINS NPO SINCE MIDNIGHT. DRESSINGS TO BILAT LOWER EXTREMS CHANGED ON COOK FISH EGGS BY THIS RN. PATIENT UP FREQUENTLY TO BSC WITH MINIMAL OUTPUT, BLADDER SCAN AFTER GETTING UP TO BSC 2x SHOWED 230mls IN BLADDER. PATIENT STATES THAT THIS IS NORMAL FOR HER. PATIENT ANXIOUS ABOUT PROCEDURE/DISCHARGE, MEDICATED WITH PRN, SEE EMAR. NO OTHER SIGNIFICANT CHANGES THIS SHIFT. WILL REPORT TO DAY SHIFT RN.
--- NOTE | 2021-12-21 08:26 | NUR ---
Patient to lab tech for pacemaker procedure.
--- NOTE | 2021-12-21 10:27 | NUR ---
AM NOTE PATIENT IS A&O TO SELF, STAFF, EVENT, DATE TO THE BEST OF HER ABILITIES. VSS AT THIS TIME. TELE AFIB 120S. SPO2 >95% RA. PATIENT IS SBA, VOIDING AT BEDSIDE VIA COMMODE. PATIENT WAS A LITTLE ANXIOUS ABOUT HER ONCOMING PROCEDURE. SHE REMAINED NPO PRIOR HER PROCEDURE. SHE IS NOW RESTING WELL POSTOP, WILL CONTINUE TO MONITOR PER PROTOCOL.
--- NOTE | 2021-12-21 16:26 | NUR ---
Spiritual Care Visit. Pt. is awake in bed and welcomes my visit. Pt. is pleasant but mildly unsettled about concerns that her family needs home health care. Provide a calming presence and listen empathetically. Pt. verbalized about a son who is currently on hospice care. Explored the impact of having merna and belief on an individual. Pt. displayed evidence of engagement and affirmation. Prayed with Pt. (as I held her hand). Pt. verbalized increased courage and gratitude due to the spiritual care visit.
--- NOTE | 2021-12-21 17:25 | NUR ---
SHIFT SUMMARY PATIENT REMAINED COOPERATIVE, PLEASANT, AND A&O X3 TO THE BEST OF HER ABILITIES. VSS. TELE AFIB 110-120S. SPO2>95% RA. PATIENT RECOVERING WELL FROM HER PACEMAKER PLACEMENT, THE SITE IS WNL WITH NO S/SX OF INFLAMMATION. PATIENT DOES C/O OF OCCASSIONAL PAIN/ACHE IN HER LEFT ARM. PATIENT MEDICATED PER EMAR. SLING REMAINS ON HER LEFT ARM. PATIENT DOES C/O OF URGENCY TO VOID AT TIMES. PATIENT VOIDING AT BEDSIDE USING A COMMODE, BLADDER SCAN SHOWS MINIMAL URINE RETENTION <200ML. WILL CONTINUE TO MONITOR UNTIL REPORT GIVEN TO THE ONCOMING NURSE.
--- NOTE | 2021-12-21 18:42 | NUR ---
I have reviewed the nursing students documentation and am in agreement. Pt had pacemaker placed this am, left chest site c/d/i; no bruising, bleeding or hematoma noted. Pt educated on left arm restrictions. Pt continues to be up to bsc multiple times during shift. Vss. No other acute changes noted. Will continue to monitor until report given to oncoming rn.
--- NOTE | 2021-12-22 06:07 | NUR ---
SHIFT SUMMARY PATIENT ALERT AND ORIENTED x3-4, FORGETFUL AT TIMES. VSS. PATIENT ON REMAINS ON RA. TELE READING AFIB WITH OCCASIONAL PACED BEATS. PATIENT IS S/P DAY 1 OF PACEMAKER PLACEMENT. NO SIGNS OF HEMATOMA TO LEFT UPPER CHEST, PATIENT REPORTS MINIMAL PAIN. LEFT ARM IN SLING. DRESSINGS TO BILAT LOWER EXTREMITY WOUNDS CHANGED THIS SHIFT. ADEQUATE URINE OUTPUT THIS SHIFT. PATIENT IS ABLE TO MAKE NEEDS KNOWN TO STAFF.
--- NOTE | 2021-12-22 15:38 | NUR ---
Pt resting in bed and is A&OX4. Reviewed current plan of care. Pt had pacemaker placed yesterday. Offered therapeutic listening as Pt reports living at home with her spouse. She reports having children but none that live local. She reports her 's health is fragile as well. She reports struggling with ambulation and bathing. She is requesting assistance with finding caregiver support. Continued therapeutic listening. Engaged in therapeutic conversation regarding her chronic illnesses. Educated on disease process including trajectory. Encouraged Pt to have routine conversations with her PCP regarding disease and making plans for the future based off her goals and values. Discussed code status wishes. Educated on life sustaining measures including risk factors and implications of CPR. Pt V/U and reports wishes are to remain a full code. Pt reports her biggest concern is getting caregiver support in the home. Pt expresses appreciation and reports no other concerns. Left message with Caremancatalino Murphy with Pt's request and concerns. Palliative Care will remain available.
--- NOTE | 2021-12-22 16:32 | NUR ---
SHIFT SUMMARY Pt is a/o x 4. She reports pain to her left shoulder s/p pacemaker on 12/21. She has been good about keeping the sling on and not putting weight on that arm. She has been up and down from the chair to the bed and using the BSC for toileting with stand by assist. She continues to have urinary frequency and likes to sit on the BSC often even if she has no output. She was assisted with a bed bath this morning. She has been working with therapy. The dressings to her legs were changed and she has them elevated on pillows. Her came by earlier and stayed with her through lunch. Plan is for her to stay another night after the med changes that the reinforcing steel machine operator made today. She is resting in bed now. She has her call light and personal items in reach and is able to make her needs known.
[2021-12-23 04:39] LABS: BASOPHILS ABSOLUTE AUTO 0.03 K/mm3 (0.00-0.23); BASOPHILS PERCENT AUTO 0 % (0-2); EOSINOPHILS ABSOLUTE AUTO 0.34 K/mm3 (0.00-0.68); EOSINOPHILS PERCENT AUTO 3 % (0-6); Hematocrit 31.5 % (33.0-51.0); Hemoglobin 9.3 g/dL (11.5-16.0); IMMATURE GRAN ABSOLUTE AUTO 0.06 K/mm3 (0.00-0.10); IMMATURE GRAN PERCENT AUTO 1 % (0-1); LYMPHOCYTES ABSOLUTE AUTO 1.07 K/mm3 (0.84-5.20); LYMPHOCYTES PERCENT AUTO 9 % (21-46); MONOCYTES ABSOLUTE AUTO 0.62 K/mm3 (0.16-1.47); MONOCYTES PERCENT AUTO 5 % (4-13); Mean Corpuscular HGB Conc 29.5 g/dL (31.5-36.5); Mean Corpuscular Volume 81 fL (80-100); Mean Platelet Volume 10.5 fL (9.1-12.4); NEUTROPHILS ABSOLUTE AUTO 10.02 K/mm3 (1.96-9.15); NEUTROPHILS PERCENT AUTO 83 % (41-73); Platelet Count 240 K/mm3 (150-400); RDW Coefficient Variation 19.5 % (11.7-14.2); RDW Standard Deviation 54.8 fL (35.1-46.3); Red Blood Cell Count 3.87 M/mm3 (3.80-5.20); White Blood Cell Count 12.14 K/mm3 (4.00-11.30)
[2021-12-23 05:04] LABS: Bun/Creatinine Ratio 39.2 (12.0-20.0); Calcium, Blood 8.6 mg/dL (8.5-10.1); Creatinine, Blood 1.02 mg/dL (0.40-1.00); Potassium, Blood 4.2 mmol/L (3.5-5.5)
--- NOTE | 2021-12-23 05:30 | NUR ---
SHIFT SUMMARY Assumed care of pt at 1900. A/Ox4. No reports of pain, CP/pressure. BLE wounds covered and C/D/I dressings changed 12/22/21. HR maintained 100-125. Pain multiple times t/o night, relieved with PRN & repositioning. Will report to dayshift RN.
[2021-12-23] MEDS ORDERED: METO25 PO (13:34)
[2021-12-23] MEDS ORDERED: DILT180 PO (13:35)
--- NOTE | 2021-12-23 14:21 | NUR ---
DC SUMMARY Pt is a/o x 4. She has chronic pain and the pain in her left shoulder from the pacemaker placement. She was medicated PRN per emar. She remains on room air. Her underlying rhythm remains A-fib with paced beats in the one teens. The dressings to her lower legs are CDI and she will resume her home health schedule of visits where they manage those dressing changes for her. She has been getting up to the [facility] with SBA and no reports of dizziness. Her med rec was faxed to [facility] and all the DC instructions and follow up appts were reviewed with the pt and her . All their questions were answered and they are scheduled to follow up with [facility] for more help once they get home. All of her personal belongings were sent with her and her IV was removed. She was assisted out to the car via W/c and she was stable on DC.
== END 2021-12-23 14:10 | disposition home or self-care (01) | DRG 242 ==
LOC: ER 15:49 → PCU 20:36 → ER 20:36 → ERHOLD 20:36 → PCU 12-16 12:29
PROVIDERS: Emergency Medicine; Family Medicine; Internal Medicine; ADMIT Internal Medicine
PROC: 3E033XZ Introduction of Vasopressor into Peripheral Vein, Percutaneous Approach (ICD-10-PCS; 2021-12-15)
PROC: 0JH604Z Insertion of Pacemaker, Single Chamber into Chest Subcutaneous Tissue and Fascia, Open Approach (ICD-10-PCS; principal; 2021-12-21)
PROC: 02HK3JZ Insertion of Pacemaker Lead into Right Ventricle, Percutaneous Approach (ICD-10-PCS; 2021-12-21)
DX: I49.5 Sick sinus syndrome (principal); G93.41 Metabolic encephalopathy; N17.9 Acute kidney failure, unspecified; N39.0 Urinary tract infection, site not specified; I50.32 Chronic diastolic (congestive) heart failure; J84.9 Interstitial pulmonary disease, unspecified; I13.0 Hypertensive heart and chronic kidney disease with heart failure and stage 1 through stage 4 chronic kidney disease, or unspecified chronic kidney disease; I48.21 Permanent atrial fibrillation; R29.6 Repeated falls; I95.9 Hypotension, unspecified; E86.9 Volume depletion, unspecified; B96.20 Unspecified Escherichia coli [E. coli] as the cause of diseases classified elsewhere; N18.30 Chronic kidney disease, stage 3 unspecified; F41.9 Anxiety disorder, unspecified; I27.20 Pulmonary hypertension, unspecified; E78.5 Hyperlipidemia, unspecified; I35.0 Nonrheumatic aortic (valve) stenosis; I25.10 Atherosclerotic heart disease of native coronary artery without angina pectoris; Z88.1 Allergy status to other antibiotic agents; Z88.5 Allergy status to narcotic agent; Z79.82 Long term (current) use of aspirin; Z79.899 Other long term (current) drug therapy; Z86.73 Personal history of transient ischemic attack (TIA), and cerebral infarction without residual deficits; Z90.49 Acquired absence of other specified parts of digestive tract; Z90.710 Acquired absence of both cervix and uterus; Z95.5 Presence of coronary angioplasty implant and graft; Z88.0 Allergy status to penicillin
CPT/HCPCS: 33207; 36415; 51702; 70450; 71045; 71046; 80048; 80053; 80069; 81001; 83880; 84443; 84484; 85025; 87077; 87086; 87186; 93005; 93010; 93306; 96365-59; 96375-59; 97110; 97116; 97162; 97166; 97530; 97535; 99152; 99153; 99285-25; A9270; C1781; C1786; C1894; C1898; C9113; G0480; J0690; J0696; J1580; J1644; J1940; J2250; J3010; J7030; J7040; J7060; P9046

== ENCOUNTER → 2022-01-05 | Outpatient (CLI) | payer MEDICARE ==
[~2022-01-05] MED LIST changes: +DILT180 PO; +ELIQUIS2.5 MG PO; +HYDHCL25; +METO25 PO
[2022-01-05 19:56] LABS: Creatinine, Blood 1.37 mg/dL (0.40-1.00); Potassium, Blood 5.4 mmol/L (3.5-5.5)
== END | disposition home or self-care (01) ==
LOC: LAB 15:33 → LAB SHORT 15:33
PROVIDERS: Family Medicine
DX: I13.0 Hypertensive heart and chronic kidney disease with heart failure and stage 1 through stage 4 chronic kidney disease, or unspecified chronic kidney disease (principal); I50.9 Heart failure, unspecified; N18.9 Chronic kidney disease, unspecified
CPT/HCPCS: 80048

== ENCOUNTER 2022-01-10 16:46 | Inpatient (IN) | payer MEDICARE ==
[~2022-01-10] VITALS: Ht 165.1 cm; Wt 68.7 kg
[2022-01-10 19:24] LABS: BASOPHILS ABSOLUTE AUTO 0.01 K/mm3 (0.00-0.23); BASOPHILS PERCENT AUTO 0 % (0-2); EOSINOPHILS ABSOLUTE AUTO 0.01 K/mm3 (0.00-0.68); EOSINOPHILS PERCENT AUTO 0 % (0-6); Hematocrit 34.2 % (33.0-51.0); Hemoglobin 10.1 g/dL (11.5-16.0); IMMATURE GRAN ABSOLUTE AUTO 0.03 K/mm3 (0.00-0.10); IMMATURE GRAN PERCENT AUTO 0 % (0-1); LYMPHOCYTES ABSOLUTE AUTO 0.69 K/mm3 (0.84-5.20); LYMPHOCYTES PERCENT AUTO 6 % (21-46); MONOCYTES ABSOLUTE AUTO 0.57 K/mm3 (0.16-1.47); MONOCYTES PERCENT AUTO 5 % (4-13); Mean Corpuscular HGB 23.3 pg (26.0-34.0); Mean Corpuscular HGB Conc 29.5 g/dL (31.5-36.5); Mean Corpuscular Volume 79 fL (80-100); Mean Platelet Volume 10.9 fL (9.1-12.4); NEUTROPHILS ABSOLUTE AUTO 9.89 K/mm3 (1.96-9.15); NEUTROPHILS PERCENT AUTO 88 % (41-73); NRBC ABSOLUTE 0.04 K/mm3 (0.00-0.02); NRBC Auto 0.4 /100 WBC (0.0-0.2); Platelet Count 276 K/mm3 (150-400); RDW Coefficient Variation 19.8 % (11.7-14.2); RDW Standard Deviation 54.8 fL (35.1-46.3); Red Blood Cell Count 4.33 M/mm3 (3.80-5.20)
[2022-01-10 19:43] LABS: Albumin, Blood 2.4 g/dL (3.4-5.0); Albumin/Globulin Ratio 0.7 (0.8-1.8); Bilirubin, Total 0.7 mg/dL (0.1-1.0); Bun/Creatinine Ratio 36.4 (12.0-20.0); Calcium, Blood 8.3 mg/dL (8.5-10.1); Creatinine, Blood 1.87 mg/dL (0.40-1.00); Globulin, Blood 3.5 g/dL (2.2-4.0); Potassium, Blood 5.7 mmol/L (3.5-5.5); Total Protein, Blood 5.9 g/dL (6.4-8.2)
[2022-01-10 20:38] LABS: Influenza A, PCR NEGATIVE (NEGATIVE); Influenza B, PCR NEGATIVE (NEGATIVE); Resp Syncytial Virus, PCR NEGATIVE (NEGATIVE); SARS-Cov-2 (COVID-19) PCR, MMC NEGATIVE (NEGATIVE)
[2022-01-10 22:54] LABS: Source, Urine Straight Cath
[2022-01-10 23:09] LABS: Bilirubin, Urine Neg (Neg); Blood, Urine Neg (Neg); Glucose Qualitative, Urine Neg (Neg); Ketones, Urine Neg (Neg); Leukocyte Esterase, Urine Neg (Neg); Nitrite, Urine Neg (Neg); Protein, Urine 1+ (Neg); Specific Gravity, Urine 1.015 (1.003-1.022); Urobilinogen, Urine NORM (Normal)
[2022-01-10 23:36] LABS: Color, Urine Yellow (P-Yellow)
[2022-01-10 23:37] LABS: Appearance, Urine Clear (Clear)
[2022-01-11 00:32] LABS: Anti-Xa UFH, PHA Monitoring <0.10 IU/mL; International Normalized Ratio 1.35; Prothrombin Time Results 13.9 Sec (9.7-11.5)
[2022-01-11 03:12] LABS: BASOPHILS ABSOLUTE AUTO 0.01 K/mm3 (0.00-0.23); BASOPHILS PERCENT AUTO 0 % (0-2); EOSINOPHILS ABSOLUTE AUTO 0.06 K/mm3 (0.00-0.68); EOSINOPHILS PERCENT AUTO 0 % (0-6); Hematocrit 34.7 % (33.0-51.0); Hemoglobin 10.2 g/dL (11.5-16.0); IMMATURE GRAN ABSOLUTE AUTO 0.05 K/mm3 (0.00-0.10); IMMATURE GRAN PERCENT AUTO 0 % (0-1); LYMPHOCYTES ABSOLUTE AUTO 0.78 K/mm3 (0.84-5.20); LYMPHOCYTES PERCENT AUTO 6 % (21-46); MONOCYTES ABSOLUTE AUTO 1.02 K/mm3 (0.16-1.47); MONOCYTES PERCENT AUTO 8 % (4-13); Mean Corpuscular HGB 23.3 pg (26.0-34.0); Mean Corpuscular HGB Conc 29.4 g/dL (31.5-36.5); Mean Corpuscular Volume 79 fL (80-100); Mean Platelet Volume 10.3 fL (9.1-12.4); NEUTROPHILS ABSOLUTE AUTO 11.58 K/mm3 (1.96-9.15); NEUTROPHILS PERCENT AUTO 86 % (41-73); NRBC ABSOLUTE 0.04 K/mm3 (0.00-0.02); NRBC Auto 0.3 /100 WBC (0.0-0.2); Platelet Count 260 K/mm3 (150-400); RDW Coefficient Variation 19.8 % (11.7-14.2); RDW Standard Deviation 55.2 fL (35.1-46.3); Red Blood Cell Count 4.38 M/mm3 (3.80-5.20)
[2022-01-11 03:32] LABS: Albumin, Blood 2.3 g/dL (3.4-5.0); Albumin/Globulin Ratio 0.7 (0.8-1.8); Bilirubin, Total 0.7 mg/dL (0.1-1.0); Calcium, Blood 8.1 mg/dL (8.5-10.1); Creatinine, Blood 1.89 mg/dL (0.40-1.00); Globulin, Blood 3.5 g/dL (2.2-4.0); Potassium, Blood 5.4 mmol/L (3.5-5.5); Total Protein, Blood 5.8 g/dL (6.4-8.2)
[2022-01-11 03:40] LABS: CPK Creatine Kinase 33 U/L (26-193)
--- NOTE | 2022-01-11 04:32 | NUR ---
PATIENT ARRIVED TO UNIT AT 0233. ALERT AND ORIENTED X4, FORGETFUL AT TIMES AND UNABLE TO PROVIDE MED OR ACCURATE HISTORY, SAYS HER HELPS WITH ALL THAT. 02 SATS 93% ON RA, LS COARSE, PT DENIES SOB. HR A.FIB WHEN PATIENT ARRIVED AT 100-110, DENIED CP/PRESSURE. HR NOW A.FIB AVERAGING 130s, PT REPORTS CP AT TIMES WHEN HR INCREASES. BP HYPOTENSIVE AND DECREASING, DR. GREENE AWARE, TO START LEVO AND MOVE PATIENT TO ICU. EXTENSIVE LEG WOUNDS, REDRESSED, WRAPPED AND PHOTOS IN CHART. SCAB FROM PACEMAKER PRESENT. PATIENT INCONTINENT, BRIEF IN PLACE. ORAL CARE DONE AND PATIENT REPOSITIONED.
--- NOTE | 2022-01-11 05:53 | NUR ---
ARRIVAL TO ICU/END OF SHIFT SUMMARY PT ARRIVED TO ICU 7 AT 0455 VIA PCU BED. PT COMING TO ICU TO BE ON LEVOPHED GTT DUE TO HYPOTENSION. NEURO: PT IS A/OX4 AND ABLE TO MAKE HER NEEDS KNOWN, IS LETHARGIC AND PROFOUNDLY WEAK. RESP: LUNG SOUNDS COARSE TO UPPER LOBES AND DIM T/O LOWER LOBES. CURRENTLY ON RA. CHALLENGING TO GET SPO2 READING DUE TO LEVOHPED NOW INFUSING. WHEN READING IS AVAILABLE, SPO2 >98% CARDIAC: PT ARRIVED WITH LEVOPHED INFUSING AT 2MCG/MIN, SBP 90'S, MAP >65. HR IS 140-160'S. CALLED DR GREENE REGARDING HR WITH LEVOPHED INFUSING. NEW ORDERS PROVIDED FOR TWO DOSES OF DIGIXON, ONE NOW AND ONE IN FOUR HOURS. PT C/O ANGINA THAT COMES AND GOES. HR CONT TO BE 140-160'S NOW. BLE SHOWS 3+ PITTING EDEMA. BUE 1+ EDEMA. LEVOHPED INFUSING IN 20G RT AC, IV FLUSHES AND HAS BLOOD RETURN. GI/: PT IS INCONTINENT, ARRIVED WITH ATTEND IN PLACE. PT C/O MILD ABD PAIN THAT IS "NOT NEW" ACCODING TO PT. SKIN: SEVERAL BLE WOUNDS COVERED IN BANDAGES, HEELS IN ADHESIVE BANDAGES WITH PINK HEEL PROTECTORS IN PLACE. HEPARIN INFUSING AT 15UNITS/KG/HR THROUGH 20G IN LT AC. WILL REPORT TO AM RN WHEN AVAILABLE.
[2022-01-11] MEDS ORDERED: FOSAMAX70 MG PO (08:47)
[2022-01-11] MEDS ORDERED: ATORVASTATIN CA80 M1 PO (08:48)
[2022-01-11] MEDS ORDERED: DIAZ5 PO (08:49)
[2022-01-11] MEDS ORDERED: DILTIAZEM 24HR360 MG PO (08:50)
[2022-01-11] MEDS ORDERED: FAMO20 PO (08:52)
[2022-01-11] MEDS ORDERED: Norco 7.5/325 Tablet PO (08:53)
[2022-01-11] MEDS ORDERED: ISOSORBIDE MONO30 MG PO (08:54)
[2022-01-11] MEDS ORDERED: Lopressor 25 mg25 MG PO (08:56)
[2022-01-11] MEDS ORDERED: OLME20 PO (08:57)
[2022-01-11] MEDS ORDERED: KLOR-CON 1010 ME1 PO (08:58)
[2022-01-11] MEDS ORDERED: RANEXA1000 M4 PO (08:59)
[2022-01-11] MEDS ORDERED: TORS10 PO (09:01)
[2022-01-11 11:28] LABS: CPK Creatine Kinase 39 U/L (26-193)
--- NOTE | 2022-01-11 13:24 | NUR ---
Spiritual Care Consult: ordered by Dr. Delarosa Pt. is resting in room but responds to my greeting and welcomes my visit. 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 Re-establish rapport. Pt. is pleasant and has no present concerns. Facilitate a life review. Prayed with Pt. Pt. verbalized gratitude for the Spiritual Care visit.
--- NOTE | 2022-01-11 14:37 | NUR ---
SHIFT SUMMARY THIS STUDENT NURSE OBTAINED VERBAL CONSENT TO ASSIST WITH PATIENT CARE ON 01/11/22. ORDER OBTAINED FOR NORIEGA CATHETER TO BE INSERTED BY PATIENT'S PHYSICIAN DR. HART, NORIEGA INSERTED BY KEITH Jc UNDER THE OBSERVATION OF KE Guthrie AT 0900 ON 01/11/22. PATIENT RECEIVED IV PAIN MEDICATIONS BEFORE NORIEGA INSETION BY NURSE KE Guthrie. PATIENT TOLERATED NORIEGA INSERTION WELL. PATIENT WAS TAKEN OFF NPO ORDER PER DR'S ORDERS AND PLACED ON CARDIAC DIET. PATIENT RESTING WELL AND PAIN IS MANAGED.
--- NOTE | 2022-01-11 18:08 | NUR ---
SHIFT SUMMARY PT ALERT/ORIENTED, PLEASANT AND COOPERATIVE WITH CARE T/O SHIFT. PT REMAIN IN AFIB WITH HR 80-100, DILTIAZEM GTT ON STANDBY SINCE 1300. PT REMAINS HYPOTENSIVE, LEVOPHED INFUSING @ 6 MCG/MIN TO MAINTAIN MAP>60. HEPARIN @15 UNITS/HR. PT HAS GOOD APPETITE, NO DIFFICULTY SWALLOWING, DENIES NAUSEA. REPORTS CHRONIC ABDOMINAL PAIN (TREATED WITH HOME MEDS PER EMAR). PT HAD PRESSURE ULCERS UPON ADMISSION. WOUND CARE CONSULT PLACED. NEW PICTS IN CHART AND WOUND DRESSING ORDERS PLACED. PT DECLINES REPOSITIONING ON OCCASION. WILL REPORT TO ONCOMING NURSE.
--- NOTE | 2022-01-11 21:08 | NUR ---
ASSUMED CARE AT 1900 PATIENT IS ALERT AND ORIENTED X4, FORGETFUL AND ANXIOUS AT TIMES. 02 SATS 97% ON RA, LS CRACKLES TO DIMINISHED. HR A.FIB 90s-110, WITH PACED BEATS, BP WITH MAP >60 ON LEVOPHED. DENIES CP AT THIS TIME. NORIEGA PATENT AND DRAINING TO GRAVITY. WOUNDS DRESSED DURING DAYSHIFT BY WOUND NURSE, DRESSINGS REMAIN C/D/I. PATIENT REPOSITIONED. SEE SHIFT ASSESSMENT FOR MORE DETAIL.
--- NOTE | 2022-01-12 06:15 | NUR ---
SHIFT SUMMARY PATIENT REMAINS ALERT AND ORIENTED, FORGETFUL AT TIMES. 02 SATS 96% ON RA, LS WITH CRACKLES. HR A.FIB WITH PACED BEATS 60s-90s. BP WITH MAP >60 ON LEVO. IV WITH LEVO AND HEPARIN INF REMAINS PATENT, ABLE TO DRAW BLOOD BACK, CHECKED FREQUENTLY. NORIEGA DRAINING, LEAKING SMALL AMOUNT THIS AM, READJUSTED AND MADE SURE BALLOON IS PROPERLY INFLATED, PATIENT MAY HAVE PULLED ON IT, 100 MLS OUT THIS SHIFT. NO BM. WOUND DRESSING REMAINS C/D/I.
[2022-01-12 07:01] LABS: BASOPHILS ABSOLUTE AUTO 0.02 K/mm3 (0.00-0.23); BASOPHILS PERCENT AUTO 0 % (0-2); EOSINOPHILS ABSOLUTE AUTO 0.08 K/mm3 (0.00-0.68); EOSINOPHILS PERCENT AUTO 1 % (0-6); IMMATURE GRAN ABSOLUTE AUTO 0.05 K/mm3 (0.00-0.10); IMMATURE GRAN PERCENT AUTO 0 % (0-1); LYMPHOCYTES ABSOLUTE AUTO 0.81 K/mm3 (0.84-5.20); LYMPHOCYTES PERCENT AUTO 5 % (21-46); MONOCYTES ABSOLUTE AUTO 1.08 K/mm3 (0.16-1.47); MONOCYTES PERCENT AUTO 7 % (4-13); Mean Corpuscular HGB 23.2 pg (26.0-34.0); Mean Corpuscular HGB Conc 29.4 g/dL (31.5-36.5); Mean Corpuscular Volume 79 fL (80-100); Mean Platelet Volume 10.4 fL (9.1-12.4); NEUTROPHILS ABSOLUTE AUTO 14.51 K/mm3 (1.96-9.15); NEUTROPHILS PERCENT AUTO 88 % (41-73); NRBC ABSOLUTE 0.16 K/mm3 (0.00-0.02); Platelet Count 284 K/mm3 (150-400); RDW Coefficient Variation 19.6 % (11.7-14.2); RDW Standard Deviation 54.2 fL (35.1-46.3); Red Blood Cell Count 4.31 M/mm3 (3.80-5.20); White Blood Cell Count 16.55 K/mm3 (4.00-11.30)
[2022-01-12 07:15] LABS: Albumin, Blood 2.1 g/dL (3.4-5.0); Anion Gap 11 mmol/L (6-16); Blood Urea Nitrogen 80 mg/dL (8-24); Bun/Creatinine Ratio 41.5 (12.0-20.0); CO2, Blood 20 mmol/L (21-32); Calcium, Blood 7.8 mg/dL (8.5-10.1); Chloride, Blood 104 mmol/L (98-108); Creatinine, Blood 1.93 mg/dL (0.40-1.00); Glomerular Filtration Rate 25 (60-); Glucose, Blood 122 mg/dL (70-99); Magnesium, Blood 2.1 mg/dL (1.6-2.4); Phosphorus, Blood 4.3 mg/dL (2.5-4.9); Potassium, Blood 5.9 mmol/L (3.5-5.5); Sodium, Blood 135 mmol/L (136-145)
--- NOTE | 2022-01-12 16:58 | NUR ---
SHIFT SUMMARY PT HAS REMAINED AWAKE, ALERT, THIS SHIFT. PT IS FORGETFUL AND ANXIOUS AT TIMES. VITAL SIGNS STABLE THIS SHIFT. PT REMAINS ON LEVOPHED AT 6 MCG/MIN INFUSING THROUGH RIGHT AC IV. HEPARIN GTT INFUSING AT 15 UNITS/KG/HR. PT ON ROOM AIR. PT TOLERATING PO INTAKE WELL. NORIEGA REMAINS IN PLACE WITH SMALL AMOUNT OF CLEAR YELLOW OUTPUT NOTED. PT SPOUSE AT BEDSIDE THIS AM AND THIS AFTERNOON. WOUNDS TO BLE'S REMAIN UNCHANGED. EDEMA TO BLE'S REMAINS UNCHANGED. WILL CONTINUE TO MONITOR AND REPORT OFF TO ONCOMING RN.
--- NOTE | 2022-01-12 20:35 | NUR ---
ASSUMED CARE AT 1900 PATIENT IS ALERT AND ORIENTED X4, ANXIOUS AND CONFUSED FOR A WHILE AFTER SLEEPING. 02 SATS 93% ON RA, COARSE LS, DRY COUGH, SOME PAIN WITH COUGHING. HR A. FIB 80s-110 WITH SOME PACED BEATS. BP WITH MAP >60 ON LEVO. NORIEGA PATENT AND DRAINING TO GRAVITY. SMALL BM AT START OF SHIFT. BEDBATH DONE, TOP CHANGED, MEPILEX TO PROTECT COCCYX CHANGED. DRESSING TO BLE C/D/I, PINK FOAM HEEL PROTECTORS IN PLACE. HEPARIN INF. CHECKED IV THAT HEPARIN AND LEVO INF, BLOOD RETURN AND GOOD FLUSH. REPOSITIONED, CALL LIGHT IN REACH. SEE SHIFT ASSESSMENT FOR MORE INFO.
--- NOTE | 2022-01-13 06:11 | NUR ---
SHIFT SUMMARY PATIENT IS ALERT AND ORIENTED WITH SOME INCREASING CONFUSION AFTER SLEEPING. NEEDS REORIENTED MORE FREQUENTLY. 02 SATS 97% ON 2L VIA NC, LS COARSE, DRY COUGH PRESENT. HR A.FIB WITH PACED BEATS 80s-100. BP STABLE WITH MAP >60 ON LEVO. IV FLUSHES GOOD WITH BLOOD RETURN THAT LEVO IS INF THROUGH. HEPARIN RATE INCREASED SEE EMAR. NORIEGA PATENT AND DRAINING TO GRAVITY. PATIENT HAD MULTIPLE BMs THIS SHIFT, BATH DONE. EXTREMETIES EDEMATOUS AND WEEPING. REPOSITIONED Q2 HOURS. CALL LIGHT IN REACH.
[2022-01-13 07:01] LABS: BASOPHILS ABSOLUTE AUTO 0.02 K/mm3 (0.00-0.23); BASOPHILS PERCENT AUTO 0 % (0-2); EOSINOPHILS PERCENT AUTO 1 % (0-6); Hematocrit 33.1 % (33.0-51.0); IMMATURE GRAN ABSOLUTE AUTO 0.07 K/mm3 (0.00-0.10); IMMATURE GRAN PERCENT AUTO 0 % (0-1); LYMPHOCYTES ABSOLUTE AUTO 0.59 K/mm3 (0.84-5.20); LYMPHOCYTES PERCENT AUTO 3 % (21-46); MONOCYTES ABSOLUTE AUTO 1.23 K/mm3 (0.16-1.47); MONOCYTES PERCENT AUTO 6 % (4-13); Mean Corpuscular HGB 23.8 pg (26.0-34.0); Mean Corpuscular HGB Conc 30.2 g/dL (31.5-36.5); Mean Corpuscular Volume 79 fL (80-100); Mean Platelet Volume 11.6 fL (9.1-12.4); NEUTROPHILS ABSOLUTE AUTO 17.96 K/mm3 (1.96-9.15); NEUTROPHILS PERCENT AUTO 90 % (41-73); NRBC ABSOLUTE 0.07 K/mm3 (0.00-0.02); NRBC Auto 0.4 /100 WBC (0.0-0.2); Platelet Count 280 K/mm3 (150-400); RDW Coefficient Variation 19.7 % (11.7-14.2); RDW Standard Deviation 55.1 fL (35.1-46.3); Red Blood Cell Count 4.21 M/mm3 (3.80-5.20); White Blood Cell Count 19.97 K/mm3 (4.00-11.30)
[2022-01-13 07:11] LABS: Magnesium, Blood 2.1 mg/dL (1.6-2.4)
[2022-01-13 07:16] LABS: Anion Gap 8 mmol/L (6-16); Blood Urea Nitrogen 94 mg/dL (8-24); Bun/Creatinine Ratio 46.5 (12.0-20.0); CO2, Blood 21 mmol/L (21-32); Calcium, Blood 8.1 mg/dL (8.5-10.1); Chloride, Blood 104 mmol/L (98-108); Creatinine, Blood 2.02 mg/dL (0.40-1.00); Glomerular Filtration Rate 23 (60-); Glucose, Blood 116 mg/dL (70-99); Potassium, Blood 6.1 mmol/L (3.5-5.5); Sodium, Blood 133 mmol/L (136-145)
--- NOTE | 2022-01-13 11:59 | NUR ---
COMFORT CARE PT SPOUSE AT BEDSIDE. DISCUSSION WITH DR HART AND TASH, PALLIATIAVE CARE RN ABOUT PT WORSENING CONDITION AND GOALS OF CARE. PT REMAINS CONFUSED/FORGETFUL. DECISION MADE TO MAKE PT COMFORT CARE AT THIS TIME BY PT SPOUSE. LEVOPHED AND HEPARIN GTT'S DISCONTINUED. PT MED WITH MORPHINE IV PER EMAR. PT IS RESTING QUIETLY AT THIS TIME AND PT SPOUSE REMAINS AT BEDSIDE. WILL CONTINUE TO MONITOR.
--- NOTE | 2022-01-13 11:59 | NUR ---
Spiritual Care visit. Pt. is in bed, spouse is present. Pt. welcomes my visit. Pt. displays evidence of increased disomfort and intermitant confusion. Pt. is most pleasant in spite of her condition. Pt. verbalizes gratitude and affection to all who are caring for her. Pt. is unsettled by increased pain. Nurse is present to give medication for the pain. steps out to greet son who will be making a visit. The Pt. is now comfort care, and family is coming to see pt. while they can interact with her. Prayed with Pt. Pt. verbalized gratitude for the spiritual care visit. This business liaison manager will maintain a close watch on the Pt. and family throughout the shift.
--- NOTE | 2022-01-13 13:45 | NUR ---
Dr Delarosa met with family pt declining and starting to have more air hunger and renal failure. pt placed on comfort care notified family and they came in to visit. will continue to monitor for pain and air hunger.
--- NOTE | 2022-01-13 16:43 | NUR ---
PT ARRIVED TO THE MEDICAL FLOOR VIA BED FROM THE ICU. PT IS DROWSY AWAKENS WITH VERBAL STIMULI. THE PT LEFT LEG DRESSING CHANGED DUE TO SATURATION. PT CLEANED AND REPOSITIONED. FAMILY IS AT THE BEDSIDE CALL LIGHT IN REACH. WILL CONTINUE TO MONITOR AND ASSWESS FOR CHANGES
--- NOTE | 2022-01-13 17:49 | NUR ---
PT APPEARS TO BE COMFORTABLE AT THIS TIME. FAMILY IS AT THE BEDSIDE DENIES ANY NEEDS AT THIS TIME. CALL LIGHT IN REACH. WILL CONTINUE TO MONITOR AND ASSESS FOR CHANGES
--- NOTE | 2022-01-13 18:33 | NUR ---
Multiple visits to review symptoms and medications. pt having terminal aggitation and increased airhunger.pt medicated and started to transion about 30 minutes after juancarlos[plian called and family called and phone put up to patients ear. since no family nubia GRIMM welks and myslf stayed with pt and provided theraputic touch and support.
--- NOTE | 2022-01-13 19:58 | NUR ---
Pt given Roxanol for air hunger and pain, present at bedside. will be leaving and his cell phone number is on white board. Pt is starting to calm down was able to tell RN that she was in pain, bluish color to arms and hands, dressings to bilateral lower legs CDI.
--- NOTE | 2022-01-14 00:01 | NUR ---
@[id number] PT IS NO LONGER BREATHING NO PULSE NOTED, FAMILY ( BJ) IS CALLED AND MESSAGE LEFT REQUESTING RETURN CALL AFTER VOICEMAIL IS REACHED. LOCAL BULK DRIVER NOTIFIED.
--- NOTE | 2022-01-14 00:52 | NUR ---
sECOND ATTEMPT MADE TO CONTACT VIA CELL PHONE NUMBER, VOICEMAIL RECEIVED.
--- NOTE | 2022-01-14 02:17 | NUR ---
PT HAS RETURNED TO HOSPITAL, INFORMED OF PT PASSING; HE REQUESTED RN CALL HIS SON DELMA. DELMA HAS BEEN INFORMED OF PT PASSING, HE LIVES IN [place]. IS AT BEDSIDE WITH PT AT THIS TIME.
== END 2022-01-14 03:36 | DRG 175 ==
LOC: ER 16:46 → ERHOLD 21:31 → ICUE 21:31 → PCU 01-11 02:33 → ICUE 01-11 04:54 → MEDS 01-13 16:21
PROVIDERS: Emergency Medicine; Family Medicine; ADMIT Internal Medicine
PROC: 3E03329 Introduction of Other Anti-infective into Peripheral Vein, Percutaneous Approach (ICD-10-PCS; principal; 2022-01-10)
PROC: 3E033XZ Introduction of Vasopressor into Peripheral Vein, Percutaneous Approach (ICD-10-PCS; 2022-01-11)
DX: I26.09 Other pulmonary embolism with acute cor pulmonale (principal); N17.9 Acute kidney failure, unspecified; L03.116 Cellulitis of left lower limb; I50.32 Chronic diastolic (congestive) heart failure; I48.20 Chronic atrial fibrillation, unspecified; J84.9 Interstitial pulmonary disease, unspecified; I13.0 Hypertensive heart and chronic kidney disease with heart failure and stage 1 through stage 4 chronic kidney disease, or unspecified chronic kidney disease; R57.8 Other shock; Z66 Do not resuscitate; Z51.5 Encounter for palliative care; Z20.822 Contact with and (suspected) exposure to COVID-19; N18.30 Chronic kidney disease, stage 3 unspecified; E87.5 Hyperkalemia; I27.20 Pulmonary hypertension, unspecified; G89.29 Other chronic pain; F41.9 Anxiety disorder, unspecified; I25.10 Atherosclerotic heart disease of native coronary artery without angina pectoris; I73.9 Peripheral vascular disease, unspecified; I35.0 Nonrheumatic aortic (valve) stenosis; Z87.440 Personal history of urinary (tract) infections; Z86.73 Personal history of transient ischemic attack (TIA), and cerebral infarction without residual deficits; Z95.5 Presence of coronary angioplasty implant and graft; Z90.49 Acquired absence of other specified parts of digestive tract; Z90.710 Acquired absence of both cervix and uterus; Z88.1 Allergy status to other antibiotic agents; Z88.5 Allergy status to narcotic agent; Z88.6 Allergy status to analgesic agent; Z88.8 Allergy status to other drugs, medicaments and biological substances; Z79.899 Other long term (current) drug therapy
CPT/HCPCS: 0241U; 36415; 51701; 51702; 71045; 76770; 78580; 80053; 80069; 82550; 82947; 83605; 83735; 83880; 84484; 85025; 85379; 85520; 85610; 87040; 93005; 93010; 93308; 93321; 96365; 96367; 96375; 99285-25; A9270; A9540; J0282; J0295; J0610; J0696; J1160; J1644; J1815; J2270; J2405; J2543; J7030; J7060